=== PATIENT | female | born 1975 | race Caucasian/White ===

== ENCOUNTER → 2017-12-26 16:30 | Outpatient (CLI) | payer OTHER, SELFPAY ==
[2017-12-26 17:15] LABS: Add Manual Diff / Slide Review NO; Basophils Percent Auto 0.9 % (0-2); Eosinophils Percent Auto 2.6 % (2-4); Hematocrit 38.2 % (36-46); Lymphocytes Percent Auto 37.2 % (25-40); Mean Corpuscular Hemoglobin 30.9 PG (26-34); Monocytes Percent Auto 7.1 % (3-14); Neutrophils Absolute Auto 3500 /uL (3000-5900); Neutrophils Percent Auto 52.2 % (50-75); Platelet Count 325 X10^3/uL (150-400); Red Cell Distribution Width 13.2 % (11.6-14.8); White Blood Cell Count 6.6 X10^3/uL (4.5-11.0)
== END ==
PROVIDERS: PCP Family Medicine; Visit Provider Specialist
DX: Z01.818 Encounter for other preprocedural examination (principal)
CPT/HCPCS: 36415; 85025

== ENCOUNTER 2017-12-31 06:25 | Day surgery (SDC) | payer OTHER, SELFPAY ==
[2017-12-17 08:28] VITALS: BMI 28.5
[2017-12-31] VITALS (15 sets, daily range): BP systolic 97–144; BP diastolic 64–86; PULSE 77–100; RESP 12–22; TEMP 36–36.9; O2SAT 94–99; BMI 28.5
--- NOTE | 2017-12-31 | PATH_ITS ---
[facility] Accession Number: [id number] . 01 Material submitted: . UTERUS AND RIGHT FALLOPIAN TUBE . 02 Diagnosis: Uterus, Right Fallopian Tube, Hysterectomy and Salpingectomy: Right fallopian tube with endometriosis. Endometrium, cervix and fallopian tube with no evidence of neoplasia or hyperplasia. [facility]/01/02/2018 . 02 Electronically signed: . Magdalena Hu MD, Pathologist NPI- [id number] . 01 Gross description: . Received in formalin, labeled uterus + right fallopian tube, is a uterus (115 grams, 4.2 cm AP, 9.8 cm SI, 5.3 cm ML) and a detached fimbriated fallopian tube (length-2.7 cm, diameter-0.4 cm). The ovaries and second fallopian tube are absent. The cervix, (1.5 cm AP, 3.4 cm ML) has a vaginal cuff, up to 1.5 cm in depth), transverse os, and patent endocervical canal. The endometrium (average thickness-0.2 cm) is pale ngo, smooth and flat. The myometrium (thickness-2.4 cm) is ngo-white and contains multiple solid firm whorled well-circumscribed homogeneous nodules (0.2 x 0.2 x 0.2 cm-1.5 x 0.8 x 0.5 cm). The serosa is pale ngo smooth and dull. The fallopian tube has mathews-ngo smooth shiny serosa and a ngo unremarkable lumen. Section code: (A1) anterior cervix; (A2) posterior cervix; (A3, A4) anterior endomyometrium; (A5, A6) posterior endomyometrium; (A7) fallopian tube, office machines sales representative serial sections; (A8) fimbria, bivalved, entirely submitted. ([id number]) /MRV . 02 Pathologist provided ICD-10: N80.9 . 02 CPT . 141440 Performed at: 01 [facility] [address] [address], [place], [place] [id number] MD Gregory Barriga MD Phone: [phone] Performed at: 02 [facility] [address] [place], [place] [id number] MD Logan Fontenot MD Phone: [phone]
--- NOTE | 2017-12-31 07:28 | PM.PREOP ---
Pre-operative Note Interval Note Pre-op Check: Yes History & Physical Reviewed by Physician and Yes Exam Performed Changes: No H&P completed within 30 days and has changed as indicated here:: see 12/26/17 note
[2017-12-31] MEDS: LACTATED RINGERS 1,000 ML 42 ML IV ×2 (07:35→10:56)
[2017-12-31] MEDS: CEFAZOLIN 2 GM/100 ML FROZ.PIGGY IV (08:12)
--- NOTE | 2017-12-31 08:40 | SUR.OPER ---
Lithotomy on padded OR bed, head on pillow, arms secured on padded arm boards at <90 degrees abduction. Legs secured in padded yellow fins stirrups.
[2017-12-31] MEDS: BUPIVACAINE 0.5% W/ EPI (PF) VIAL 30 ML INJ (08:48)
[2017-12-31] MEDS: ONDANSETRON 4 MG/2 ML INJ IV ×2 (10:34→17:44)
[2017-12-31] MEDS: fentaNYL 100 MCG/2 ML INJ IV ×2 (10:45→10:52)
--- NOTE | 2017-12-31 10:54 | P.OP_ITS ---
Operative Date/Time/Diagnoses Date of procedure: 12/31/17 Time of procedure: 10:45 Pre-op diagnosis: Symptomatic uterovaginal prolapse Post-op diagnosis: same Procedure & Clinicians Procedure: Total vaginal hysterectomy, right salpingectomy, anterior and posterior repair, sacrospinous ligament fixation Same procedure as scheduled: Yes Indications: Symptomatic uterovaginal prolapse Surgeon: Stefany Burton Lead Python Developer: Андрей Cheng Anesthesia Type: General Operative Notes Findings: Cystocele, rectocele, mild uterine prolapse, normal appearing uterus, possible endometriosis on the right fallopian tube, normal ovaries bilaterally Closure Type: primary Specimen(s): other (Uterus and right fallopian tube) Applied: catheter (Dubois and vaginal packing) Estimated Blood Loss (mL): 200 Blood products transfused: none Procedure in detail: Patient was brought to the operating room where she was placed in yellowfin stirrups and prepped and draped in the usual sterile fashion. A 20 point check system was reviewed prior to the beginning of the case. Pulsatile stockings were in place and functional throughout the case. Warming was in place. 2 g of Ancef were in prior to beginning of the case. A Dubois catheter was placed. A single-tooth tenaculum was placed on the posterior lip of the cervix and a colpotomy incision was made. The peritoneum was sutured to the posterior vaginal wall. The uterosacral ligaments were clamped cut and ligated with 0 Vicryl suture which was used throughout the rest the case unless otherwise indicated. Bites were taken of the cardinal ligament and cut and ligated. A scalpel was used to circumscribe the cervix and the bladder pushed superiorly. The bladder pillars were clamped, cut, and ligated. Keeping the bladder pushed superiorly sequential bites were taken of the cardinal and broad ligaments. Anterior colpotomy incision was made and the bladder held away from the uterus. The rest of the attachments of the uterus including the broad ligament and the utero-ovarian ligaments were clamped and ligated. The uterus was removed intact. Both ovaries were seen to be normal. There was what appeared to be endometriosis on the remainder of the right fallopian tube so that section of the tube was removed by clamping across the mesosalpinx. Adequate hemostasis was noted. The vaginal cuff was closed from anterior to posterior with figure-of -eight suture. A dilute solution of 1% lidocaine with epinephrine was injected over this cystocele. An incision was made over the cystocele and the incision dissected laterally. A pursestring suture was used to decrease the caliber of the cystocele with 2-0 Vicryl suture. Plicating sutures 0 Vicryl were made over the cystocele. A small amount of the vaginal excessive tissue was removed with scissors. The incision was closed with 2-0 Vicryl suture. The area over the rectocele was injected with a dilute solution of 1% lidocaine with epinephrine. An incision was made over the rectocele with the scalpel. The dissection was undertaken laterally. Prolene suture with the Capio passer was placed through the uterosacral ligament on the right and sutured to the underside of the vaginal cuff. 0 Vicryl suture was used to plicate over the rectocele. A finger was placed in the rectum to be sure there were no sutures placed through the rectal mucosa. The uterosacral sutures were tightened down and the vaginal incision was closed with 2-0 Vicryl suture. Vaginal packing was placed in the vagina and the Dubois left in place. Counts of instruments and sponges were correct. The patient went to recovery room in good condition. Complications: none Condition: stable Disposition: Acute Care Plan for aftercare: Patient will have vaginal packing and Dubois removed tomorrow morning and home after postvoid residual check and patient stable
[2017-12-31] MEDS: HYDROMORPHONE 2 MG INJ 0.5 MG IV ×3 (11:00→11:23)
--- NOTE | 2017-12-31 11:04 | SUR.PHASEI ---
Dr. Burton in to see patient.
[2017-12-31] MEDS: OXYCODONE/ACETAMINOPHEN 5/325 TABLET 2 TAB PO ×4 (11:45→23:29)
[2017-12-31] MEDS: LACTATED RINGERS 1,000 ML 100 ML IV (11:46)
[2017-12-31] MEDS: KETOROLAC 30 MG/ML VIAL IV ×2 (12:51→19:11)
--- NOTE | 2017-12-31 15:49 | PC.NURSE ---
Addendum entered by Yumi Mccoy R.N. 12/31/17 22:13: I notified Dr Dunne earlier in shift r/t pain not managed by percocet & toradol alone, pt rating pain 8 or 9 and causing her to be nauseated. Face flushed, gripping side rails tightly. Dr Dunne ordered to give patient prn IV Dilaudid for breakthrough pain. Assisted to reposition. Tonight able to sit up at side of bed with assist, to dangle legs. Then asked to stand, assisted her to stand. Denied any dizziness or lightheadedness, linens refreshed. No bleeding, gaye-pad removed per pt request. Back into bed. About an hour later she called me saying not able to get comfortable and can't wait for next dose of Percocet. Dilaudid 0.5 mg given. Instructed to call nurse if needs assistance. IVF bag complete, IV to R hand now saline locked. Denies nausea & tolerating PO's. Original Note: Post-op note: Kinjal resting in bed, reports unable to get into comfortable position. Assisted to reposition from right to left side. Althought reported pain relief after receiving Toradol, currently rates lower abd/groin/pelvic pain 7 or 8, medicated with 2 tabs Percocet, snack given with med to help prevent nausea. VS are stable. Abd soft. Gaye-pad dry, packing in place. Dubois patent with clear yellow output. IVF infusing at 100 ml/hour, IV patent with clean dressing. Kinjal instructed to call nursing if pain not relieved 45 min post-med, she agrees with this plan. Warm blanket placed against her lower back for comfort.
[2017-12-31] MEDS: HYDROMORPHONE 0.5 MG INJ IV ×2 (18:05→21:57)
[2017-12-31] MEDS: DOCUSATE 250 MG CAPSULE PO (19:11)
[2018-01-01] MEDS: HYDROMORPHONE 0.5 MG INJ IV (02:37)
[2018-01-01 02:57] VITALS: BP 126/71; PULSE 74; RESP 20; TEMP 36.7; O2SAT 98
[2018-01-01] MEDS: OXYCODONE/ACETAMINOPHEN 5/325 TABLET 2 TAB PO ×2 (03:34→07:27)
[2018-01-01] MEDS: KETOROLAC 30 MG/ML VIAL IV ×2 (05:30→11:14)
[2018-01-01 05:55] LABS: Add Manual Diff / Slide Review NO; Eosinophils Percent Auto 0.7 % (2-4); Hematocrit 30.6 % (36-46); Hemoglobin 10.7 g/dL (12.0-16.0); Lymphocytes Percent Auto 33.9 % (25-40); Mean Corpuscular HGB Conc 35.1 % (30-36); Mean Corpuscular Hemoglobin 31.6 PG (26-34); Mean Corpuscular Volume 90.1 fL (80-100); Monocytes Percent Auto 9.3 % (3-14); Neutrophils Absolute Auto 4000 /uL (3000-5900); Neutrophils Percent Auto 55.1 % (50-75); Platelet Count 270 X10^3/uL (150-400); White Blood Cell Count 7.3 X10^3/uL (4.5-11.0)
--- NOTE | 2018-01-01 06:55 | PC.NURSE ---
shift note met with pt at start of shift. pt complained of pain 6/10 throughout shift. provided prn pain meds- percocet, tordal and dilaudid. DC smith at 0615. Tolerated well. Had unmeasured void in BR, with 11mL post residual void with bladder scanner. Call light in reach.
[2018-01-01] MEDS: DOCUSATE 250 MG CAPSULE PO (07:27)
[2018-01-01] MEDS: SODIUM CHLORIDE 0.9% FLUSH 10 ML IV (07:28)
[2018-01-01 08:17] VITALS: BP 130/76; PULSE 79; RESP 18; TEMP 36.5; O2SAT 99
--- NOTE | 2018-01-01 10:44 | PM.DS.1 ---
History of Present Illness Date Patient Seen: 01/01/18 Time Patient Seen: 10:44 Chief complaint: *OPB*[id number] Narrative: Patient with symptomatic uterovaginal prolapse who underwent a total vaginal hysterectomy anterior posterior repair with sacrospinous ligament on 12/31/2017. Discharge Providers Primary care physician: Rick Álvarez MD Discharge provider: Stefany Burton MD Summary Discharge Diagnosis: Partial uterovaginal prolapse status post total vaginal hysterectomy, anterior and posterior repair with sacrospinous ligament fixation. Patient initially had trouble with pain control but her pain is controlled, she passed her bladder trial, she was ambulatory, tolerating a regular diet and her pain was under control. Exam Vital Signs (past 8 hours): - 01/01/18 02:57 01/01/18 08:17 Temperature 98.0 F 97.7 F Pulse Rate 74 79 Respiratory Rate 20 18 Blood Pressure 126/71 130/76 Pulse Oximetry 98 99 Oxygen Delivery Method Room Air Oxygen Flow Rate 0 Narrative Exam Narrative: Abdomen is soft, with minimal lower abdominal tenderness. She has mild vaginal bleeding. Extremities without edema and nontender. Objective Labs Result Diagrams: 01/01/18 05:38 Labs: Laboratory Results - last 24 hr 01/01/18 05:38 WBC 7.3 RBC 3.40 L Hgb 10.7 L Hct 30.6 L MCV 90.1 MCH 31.6 MCHC 35.1 RDW 13.0 Plt Count 270 Neut % (Auto) 55.1 Lymph % (Auto) 33.9 Russell % (Auto) 9.3 Eos % (Auto) 0.7 L Baso % (Auto) 1.0 Neut # (Auto) 4000 Discharge Plan Discharge Plan Patient Disposition: Home Discharge Med Rec/Prescriptions Prescriptions: New oxycodone-acetaminophen 5-325 mg Tablet 2 tab PO Q4HR PRN (Reason: Pain, Severe (7-10)) Qty: 40 RF: 0 docusate sodium 250 mg Capsule 250 mg PO BID Qty: 30 RF: 0 Continue methocarbamol 500 mg tablet 500 mg PO QID RF: 0 meloxicam 15 mg Tablet 15 mg PO DAILY RF: 0 Discontinued norethindrone-ethin estradiol [Dasetta ()] 1-35 mg-mcg tablet 1 tab PO DAILY RF: 0 hydrocodone-acetaminophen 5 MG/325 MG tablet 1 dose PO PRN PRN (Reason: Pain, Moderate) RF: 0 Follow up/Referrals: Stefany Burton MD [Physician] - 01/16/18 4:15 pm Discharge Orders: Discharge (Order); Ordered 01/01/18 Ordered By: Stefany Burton Provider Discharge Instructions Diet: Regular Activity: No lifting over 20 lb, nothing in vagina for 4 weeks Skin/Wound/Dressing Care Report to your healthcare provider any signs of infection, such as:: chills, fever and increased pain Visit Report/Discharge Packet Stand Alone Forms: Surgery Discharge Discharge Data Primary Care Provider: Rick Álvarez Attending Provider: Stefany Burton
--- NOTE | 2018-01-01 10:48 | P.DS_ITS ---
History of Present Illness Date Patient Seen: 01/01/18 Time Patient Seen: 10:44 Chief complaint: *OPB*[id number] Narrative: Patient with symptomatic uterovaginal prolapse who underwent a total vaginal hysterectomy anterior posterior repair with sacrospinous ligament on 01/2018. Discharge Providers Primary care physician: Rick Álvarez MD Discharge provider: Stefany Burton MD Summary Discharge Diagnosis: Partial uterovaginal prolapse status post total vaginal hysterectomy, anterior and posterior repair with sacrospinous ligament fixation. Patient initially had trouble with pain control but her pain is controlled, she passed her bladder trial, she was ambulatory, tolerating a regular diet and her pain was under control. Exam Vital Signs (past 8 hours): - 01/01/18 02:57 01/01/18 08:17 Temperature 98.0 F 97.7 F Pulse Rate 74 79 Respiratory Rate 20 18 Blood Pressure 126/71 130/76 Pulse Oximetry 98 99 Oxygen Delivery Method Room Air Oxygen Flow Rate 0 Narrative Exam Narrative: Abdomen is soft, with minimal lower abdominal tenderness. She has mild vaginal bleeding. Extremities without edema and nontender. Objective Labs Result Diagrams: 01/01/18 05:38 Labs: Laboratory Results - last 24 hr 01/01/18 05:38 WBC 7.3 RBC 3.40 L Hgb 10.7 L Hct 30.6 L MCV 90.1 MCH 31.6 MCHC 35.1 RDW 13.0 Plt Count 270 Neut % (Auto) 55.1 Lymph % (Auto) 33.9 Carroll % (Auto) 9.3 Eos % (Auto) 0.7 L Baso % (Auto) 1.0 Neut # (Auto) 4000 Discharge Plan Discharge Plan Patient Disposition: Home Discharge Med Rec/Prescriptions Prescriptions: New oxycodone-acetaminophen 5-325 mg Tablet 2 tab PO Q4HR PRN (Reason: Pain, Severe (7-10)) Qty: 40 RF: 0 docusate sodium 250 mg Capsule 250 mg PO BID Qty: 30 RF: 0 Continue methocarbamol 500 mg tablet 500 mg PO QID RF: 0 meloxicam 15 mg Tablet 15 mg PO DAILY RF: 0 Discontinued norethindrone-ethin estradiol [Dasetta ()] 1-35 mg-mcg tablet 1 tab PO DAILY RF: 0 hydrocodone-acetaminophen 5 MG/325 MG tablet 1 dose PO PRN PRN (Reason: Pain, Moderate) RF: 0 Follow up/Referrals: Stefany Burton MD [Physician] - 01/16/18 4:15 pm Discharge Orders: Discharge (Order); Ordered 01/01/18 Ordered By: Stefany Burton Provider Discharge Instructions Diet: Regular Activity: No lifting over 20 lb, nothing in vagina for 4 weeks Skin/Wound/Dressing Care Report to your healthcare provider any signs of infection, such as:: chills, fever and increased pain Visit Report/Discharge Packet Stand Alone Forms: Surgery Discharge Discharge Data Primary Care Provider: Rick Álvarez Attending Provider: Stefany Burton
--- NOTE | 2018-01-01 11:22 | PC.NURSE ---
patient tolerating pain, minimal vaginal drainage. voiding fine with pvr zero after each void. dc'd home w/ scripts and paperwork reviewed w/ patient and daughter. daughter to drive patient hm. escorted by herson w/ deployment technician escort.
== END 2018-01-01 11:25 | disposition home or self-care (01) ==
LOC: OR 06:26 → AC 08:07
PROVIDERS: Family Provider Family Medicine; PCP Family Medicine; Visit Provider Specialist
PROC: (CPT 58260; principal; 2017-12-31 07:45)
PROC: (CPT 58262; 2017-12-31 07:45)
DX: N81.4 Uterovaginal prolapse, unspecified (principal); N81.6 Rectocele; F17.210 Nicotine dependence, cigarettes, uncomplicated; N80.2 Endometriosis of fallopian tube
CPT/HCPCS: 58262; 57267; 57260; 36415; 85025; J0131; J0690; J1100; J1170; J1885; J2250; J2405; J2704; J3010

== ENCOUNTER → 2018-01-30 11:46 | Outpatient (CLI) | payer OTHER, SELFPAY ==
[2017-12-31 12:39] VITALS: BMI 28.5
[2018-01-30 13:12] LABS: Bacteria Urine None Seen; WBC Urine None Seen (0-5/HPF)
[2018-01-30 13:57] LABS: Appearance Urine UA CLEAR; Bilirubin Urine UA NEGATIVE (NEGATIVE); Color Urine UA YELLOW; Glucose Urine UA NEGATIVE (Normal); Ketones Urine UA NEGATIVE (NEGATIVE); Leukocyte Esterase Urine UA NEGATIVE (NEGATIVE); Nitrite Urine UA Negative (Negative); Occult Blood Urine UA 3+ (Negative); Protein Urine UA NEGATIVE (Negative); Specific Gravity Urine UA 1.025 (1.000-1.035); Urobilinogen Urine UA 0.2 E.U./dL (0.2)
[2018-01-30 14:04] LABS: RBC Urine 5-10/HPF (0-5/HPF); Squamous Epithelial Cell Urine 5-10 /HPF
[2018-01-30 14:05] LABS: Amorphous Sediment Urine 1+; Culture Indicated Urine Cult Not Indicated; Mucus Urine 3+ (Negative)
== END ==
PROVIDERS: Family Provider Family Medicine; PCP Family Medicine; Visit Provider Specialist
DX: N20.0 Calculus of kidney (principal)
CPT/HCPCS: 81001

== ENCOUNTER 2018-06-28 09:12 | Emergency (ER) | payer OTHER, SELFPAY ==
[2017-12-31 12:39] VITALS: BMI 28.5
[2018-06-28 09:26] VITALS: BP 149/89; PULSE 81; RESP 16; TEMP 36.3; O2SAT 100; BMI 28.3
[2018-06-28] MEDS: ONDANSETRON 4 MG/2 ML INJ IV (09:43)
[2018-06-28 09:54] LABS: Appearance Urine UA SL CLOUDY; Bilirubin Urine UA NEGATIVE (NEGATIVE); Color Urine UA YELLOW; Glucose Urine UA NEGATIVE (Negative); Ketones Urine UA NEGATIVE (NEGATIVE); Leukocyte Esterase Urine UA NEGATIVE (NEGATIVE); Nitrite Urine UA NEGATIVE (Negative); Occult Blood Urine UA 3+ (Negative); Protein Urine UA NEGATIVE (Negative); Urobilinogen Urine UA 0.2 E.U./dL (0.2)
[2018-06-28 10:00] LABS: Bacteria Urine Many (>30); Culture Indicated Urine Cult Not Indicated; RBC Urine 5-10/HPF (0-5/HPF); Squamous Epithelial Cell Urine >30 /HPF; WBC Urine 1-5/HPF (0-5/HPF)
--- NOTE | 2018-06-28 10:03 | ED_ITS ---
HPI - Female Genitourinary General Chief complaint: Urogenital-Female Stated complaint: PAIN IN KIDNEY/BLADDER AREA Time Seen by Provider: 06/28/18 09:51 Source: patient and family () Mode of arrival: ambulatory Limitations: no limitations History of Present Illness HPI Narrative: This is a 43-year-old female who comes to the emergency department with complaint of right flank pain as well as dysuria, urgency and frequency. Patient states last night started with dysuria, urgency and frequency and feels almost like there is a toothpick in her Dev[place] throat. Patient states that she has felt warm, with subjective fevers. She has been nauseated but no vomiting. No diarrhea or constipation. Patient states she is having some right flank pain. That radiates from the back towards the front. She states that the initial symptoms with dysuria, urgency and frequency with the flank pain starting today. She tried 2 tablets of Tylenol at home without success. Patient does have a history of kidney stone and has required what sounds like lithotripsy in the past. She had a hysterectomy and has had both ovaries removed in December. She denies any other surgeries currently. She denies any tobacco, alcohol or illicit. She is allergic to levofloxacin. Related Data Home Medications Medication Instructions Recorded Confirmed acetaminophen [Tylenol] 1 dose PO PRN PRN 06/28/18 06/28/18 Previous Rx's Medication Instructions Recorded oxycodone-acetaminophen [Percocet] 1 tab PO Q4-6H PRN #14 tab 06/28/18 tamsulosin [Flomax] 0.4 mg PO DAILY #7 cap 06/28/18 Allergies Allergy/AdvReac Type Severity Reaction Status Date / Time levofloxacin [LEVOFLOXACIN] Allergy Intermediate numbness Verified 06/28/18 09:25 gabapentin [GABAPENTIN] Allergy Unknown NAUSEA, Verified 06/28/18 09:25 SWEATS, WEAKNESS Review of Systems Review of Systems ROS Unobtainable: All systems reviewed & are unremarkable except as noted in HPI and below Constitutional Denies chills, Reports fever(s) ( Subjective), Denies lethargy and Denies weakness Gastrointestinal Gastrointestinal: Denies abdominal pain, Denies change in bowel habits, Denies d iarrhea, Reports nausea and Denies vomiting Genitourinary Reports as per HPI, Denies hematuria, Reports urinary frequency, Reports dysuria, Reports flank pain, Denies urinary incontinence and Reports urinary urgency Neurologic Denies weakness [facility] Medical History Rectocele (Acute) Recurrent and persistent hematuria (Acute) Surgical History History of arthroscopic knee surgery (Acute) History of bilateral tubal ligation (Acute) History of cystoscopy (Acute) History of ear surgery (Acute) History of microdiscectomy (Acute) History of placement of ear tubes (Acute) S/P epidural steroid injection (Acute) Social History household members: spouse Smoking Status: Former smoker alcohol intake: current Social History household members: spouse Smoking Status: Former smoker alcohol intake: current Exam Narrative Exam Narrative: GENERAL: Alert and oriented x three, well-nourished, well- appearing female in moderate distress. HEENT: Head normocephalic, atraumatic, EOMI, pupils reactive, face symmetric, moist mucous membranes NECK: Supple, full range of motion CARDIOVASCULAR: Regular rate and rhythm without murmurs, rubs or gallops. RESPIRATORY: Breath sounds equal bilaterally, no wheezes rales or rhonchi. ABDOMEN: Soft, nontender. Normoactive bowel sounds all 4 quadrants. No g uarding or rebound, rigidity, no mass : No CVA tenderness EXTREMITIES: Normal range of motion, no clubbing or edema. Neurovascularly intact NEUROLOGICAL: Cranial nerves II through XII grossly intact. Moving all extremities SKIN: Warm, dry, no petechiae, no rashes or lesions. Initial Vital Signs Initial Vital Signs: Vital Signs Temperature 97.3 F L 06/28/18 09:26 Pulse Rate 81 06/28/18 09:26 Respiratory Rate 16 06/28/18 09:26 Blood Pressure 149/89 H 06/28/18 09:26 Pulse Oximetry 100 06/28/18 09:26 Course Orders Ordered: Discontinued Medications Hydromorphone HCl (Dilaudid) 1 mg IV NOW ONE Stop: 06/28/18 11:25 Last Admin: 06/28/18 11:31 Dose: 1 mg Sodium Chloride (Normal Saline 0.9%) 1,000 mls @ 1,000 mls/hr IV BOLUS ONE Stop: 06/28/18 11:00 Last Infusion: 06/28/18 11:43 Dose: 0 mls/hr Admin: 06/28/18 10:08 Dose: 1,000 mls/hr Ketorolac Tromethamine (Toradol) 30 mg IV NOW ONE Stop: 06/28/18 10:02 Last Admin: 06/28/18 10:08 Dose: 30 mg Morphine Sulfate (Morphine) 4 mg IV NOW ONE Stop: 06/28/18 10:34 Last Admin: 06/28/18 10:34 Dose: 4 mg Morphine Sulfate (Morphine) 4 mg IV NOW ONE Stop: 06/28/18 11:03 Last Admin: 06/28/18 11:04 Dose: 4 mg Ondansetron HCl (Zofran) 4 mg IV NOW ONE Stop: 06/28/18 09:41 Last Admin: 06/28/18 09:43 Dose: 4 mg Oxycodone/Acetaminophen (Percocet 5/325) 2 tab PO NOW ONE Stop: 06/28/18 11:49 Last Admin: 06/28/18 11:59 Dose: 2 tab Phenazopyridine HCl (Pyridium) 200 mg PO NOW ONE Stop: 06/28/18 11:30 Last Admin: 06/28/18 11:30 Dose: 200 mg Vital Signs - 8 hr 06/28/18 11:54 06/28/18 12:10 Temperature 97.5 F L Pulse Rate 71 Respiratory Rate 18 Blood Pressure [Right Arm] 117/81 Pulse Oximetry 97 MDM - Female Genitourinary Lab Data Attestation: I reviewed the patient's lab results. Result diagrams: 06/28/18 09:35 06/28/18 09:35 Lab Results 06/28/18 06/28/18 06/28/18 Range/Units 09:20 09:35 09:35 WBC 5.8 (4.5-11.0) X10^3/uL RBC 4.32 (4.0-5.2) X10^6/uL Hgb 13.1 (12.0-16.0) g/dL Hct 38.8 (36-46) % MCV 89.9 (80-100) fL MCH 30.4 (26-34) PG MCHC 33.8 (30-36) % RDW 12.9 (11.6-14.8) % Plt Count 261 (150-400) X10^3/uL Neut % (Auto) 57.2 (50-75) % Lymph % (Auto) 32.1 (25-40) % Piute % (Auto) 7.6 (3-14) % Eos % (Auto) 2.5 (2-4) % Baso % (Auto) 0.6 (0-2) % Neut # (Auto) 3300 (3738-2618) /uL Lymph # (Auto) 1900 (6999-0259) /uL Piute # (Auto) 400 (0-900) /uL Eos # (Auto) 100 (0-450) /uL Baso # (Auto) 0 (0-100) /uL Sodium 139 (137-145) mmol/L Potassium 3.8 (3.4-5.1) mmol/L Chloride 106 (98-107) mmol/L Carbon Dioxide 23 (22-32) mmol/L BUN 15 (7-17) mg/dL Creatinine 0.70 (0.52-1.04) mg/dL Estimated GFR > 60.0 (>60) mL/min BUN/Creatinine Ratio 21.4 (6-22) Glucose 93 (70-100) mg/dL Calcium 9.1 (8.4-10.2) mg/dL Total Bilirubin 0.7 (0.2-1.3) mg/dL AST 21 (14-36) IU/L ALT 25 (9-52) IU/L Alkaline Phosphatase 56 (38-126) U/L Total Protein 7.0 (6.3-8.2) g/dL Albumin 4.3 (3.5-5.0) g/dL Globulin 2.7 (1.7-4.1) g/dL Albumin/Globulin Ratio 1.6 (1.0-2.8) Urine Color Yellow Urine Appearance Sl cloudy Urine pH 5.0 (4.5-8.0) Ur Specific Hurricane 1.020 (1.000-1.035) Urine Protein Negative (Negative) Urine Glucose (UA) Negative (Negative) g/dL Urine Ketones Negative (NEGATIVE) Urine Occult Blood 3+ H (Negative) Urine Nitrate Negative (Negative) Urine Bilirubin Negative (NEGATIVE) Urine Urobilinogen 0.2 (0.2) E.U./dL Ur Leukocyte Esterase Negative (NEGATIVE) Urine RBC 5-10/hpf H (0-5/HPF) Urine WBC 1-5/hpf (0-5/HPF) Ur Squamous Epith Cells >30 /hpf H Urine Bacteria Many (>30) H (None) Ur Culture Indicated? Cult not indicated Urine Test (Negative) 06/28/18 Range/Units 10:13 WBC (4.5-11.0) X10^3/uL RBC (4.0-5.2) X10^6/uL Hgb (12.0-16.0) g/dL Hct (36-46) % MCV (80-100) fL MCH (26-34) PG MCHC (30-36) % RDW (11.6-14.8) % Plt Count (150-400) X10^3/uL Neut % (Auto) (50-75) % Lymph % (Auto) (25-40) % Piute % (Auto) (3-14) % Eos % (Auto) (2-4) % Baso % (Auto) (0-2) % Neut # (Auto) (4104-2786) /uL Lymph # (Auto) (5409-5609) /uL Piute # (Auto) (0-900) /uL Eos # (Auto) (0-450) /uL Baso # (Auto) (0-100) /uL Sodium (137-145) mmol/L Potassium (3.4-5.1) mmol/L Chloride (98-107) mmol/L Carbon Dioxide (22-32) mmol/L BUN (7-17) mg/dL Creatinine (0.52-1.04) mg/dL Estimated GFR (>60) mL/min BUN/Creatinine Ratio (6-22) Glucose (70-100) mg/dL Calcium (8.4-10.2) mg/dL Total Bilirubin (0.2-1.3) mg/dL AST (14-36) IU/L ALT (9-52) IU/L Alkaline Phosphatase (38-126) U/L Total Protein (6.3-8.2) g/dL Albumin (3.5-5.0) g/dL Globulin (1.7-4.1) g/dL Albumin/Globulin Ratio (1.0-2.8) Urine Color Urine Appearance Urine pH (4.5-8.0) Ur Specific Hurricane (1.000-1.035) Urine Protein (Negative) Urine Glucose (UA) (Negative) g/dL Urine Ketones (NEGATIVE) Urine Occult Blood (Negative) Urine Nitrate (Negative) Urine Bilirubin (NEGATIVE) Urine Urobilinogen (0.2) E.U./dL Ur Leukocyte Esterase (NEGATIVE) Urine RBC (0-5/HPF) Urine WBC (0-5/HPF) Ur Squamous Epith Cells Urine Bacteria (None) Ur Culture Indicated? Urine Test Negative (Negative) Imaging Data CT KUB: Radiologist's impression: [address] [address] [address] Scan Report Signed Patient: Kinjal Slater [facility]#: [id number] : 1975Acct:[id number] Age/Sex: 43 / FDate of Service: 06/28/18 Loc: ED Accession Number: [id number] Procedure: CT kidney ureter bladder (KUB) Ordering Provider: Zunilda Serrano D.O. PROCEDURE: CT KIDNEY URETER BLADDER (KUB) INDICATIONS: right flank pain, dysuria, hx of stone., urine carlos only TECHNIQUE: Noncontrast 5 mm thick sections acquired from the diaphragms to the symphysis. 5 mm thick coronal and sagittal reformats were then performed. For radiation dose reduction, the following was used: automated exposure control, adjustment of mA and/or kV according to patient size. COMPARISON: [facility], CT, CT IVP, 01/29/2017, 15:41. [facility], CT, KIDNEY/ URETER/BLADDER, 06/28/2015, 14:30. [facility], CT, KIDNEY/ URETER/BLADDER, 06/11/2015, 19:04. FINDINGS: Image quality: Excellent. Lung bases: Lung bases are clear. Heart size is normal. Urinary system: Both kidneys are normal in size. No kidney stones. No left- sided hydronephrosis or perinephric fat stranding. There is moderate hydronephrosis on the right, not present 01/29/17. The left ureter appears non-dilated throughout its expected course. The right ureter is slightly dilated when compared to the prior study along the right retroperitoneum, to the level of a 1 mm calculus at the far distal right ureter virtually at the bladder wall. This can be seen on series 2 image 74 and to adjacent pelvic phleboliths serve as a reference point for reference to the prior studies showing no calcification at that site of the distal ureter. Bladder wall thickness is normal; no calcified bladder stones. Other solid organs: Liver is normal in size. Gallbladder appears normal. Pancreas is normal in contours. Spleen is normal in size. No adrenal nodules. Peritoneum and bowel: Unenhanced bowel loops demonstrate normal wall thickness and caliber. No free fluid or air. Nodes and vessels: No retroperitoneal or mesenteric adenopathy by size criteria. Aorta and inferior vena cava are normal in caliber. Abdominal wall: No ventral hernias. Pelvis: No free pelvic fluid. No inguinal hernias or adenopathy. Bones: No suspicious bony lesions. No vertebral body compression fractures. IMPRESSION: Right-sided hydronephrosis is present secondary to a 1 mm calculus at the far distal margin of the right ureter, in this patient with prior episodes of small urinary tract stones. Currently within the collecting system of each kidney no calculus is found. There are scattered multiple pelvic phleboliths more inferiorly along the retroperitoneum and peritoneal margins, but these do not represent distal ureteral stones bilaterally. Dictated by: Ho Lezama M.D. on 06/28/2018 at 10:59 Approved by: Ho Lezama M.D. on 06/28/2018 at 11:06 [facility] Narrative Medical decision making narrative: patient's urine shows bacteria but no nitrates or leukocyte esterase. Her symptoms with dysuria urgency and frequency do fit with UTI so urine culture was ordered but patient sent for CT KUB for possible kidney stone as well. Patient's BMP shows normal electrolytes with no elevation in creatinine a urine culture was sent. Patient's CT shows a 1 mm stone at the UVJ. Patient's pain was controlled after several doses of pain medication. Discussed with patient she states her last stone was also mm and ultimately had lithotripsy but after about 3 months. Patient had seen Dr. hackett and his coworkers in the past but states she does not wish to follow with them. She was offered Dr. Landis is office on although he is in [place]. Discharge Plan Departure Patient Disposition: Home Clinical Impression: Kidney stone Discharge Date/Time: 06/28/18 12:30 Interventions: ED Discharge Assessment Last Done: 06/28/18 12:30 Instructions: DI for Kidney Stones Activity Restrictions/Additional Instructions: Follow up with primary care or urology in the next 2-3 days. Call for an appointment. Your urine culture is pending if this is positive he will be contacted to start him on oral antibiotics. Continue ibuprofen 600 mg every 6 hr as needed for pain. May also take Percocet 1-2 tablets every 4 hr as needed for breakthrough pain. You may take Tylenol instead of Percocet up to a 1000 mg every 8 hr but do not take this with Percocet as they both have Tylenol and he should not have more than 3000 mg of Tylenol in a 24 hr period. Continue Flomax 1 tablet daily until gone. Return to the emergency department for fevers, persistent vomiting, rapidly worsening pain, inability to urinate or other new or concerning symptoms. Prescriptions: New oxycodone-acetaminophen [Percocet] 5-325 mg tablet 1 tab PO Q4-6H PRN (Reason: pain) Qty: 14 RF: 0 tamsulosin [Flomax] 0.4 mg capsule 0.4 mg PO DAILY Qty: 7 RF: 0 No Action acetaminophen [Tylenol] 325 mg Tablet 1 dose PO PRN PRN (Reason: pain) RF: 0 Referrals: La Landis MD [Physician] - Rick Álvarez MD [Primary Care Provider] -
--- NOTE | 2018-06-28 10:07 | DI.CT.S_ITS ---
PROCEDURE: CT KIDNEY URETER BLADDER (KUB) INDICATIONS: right flank pain, dysuria, hx of stone., urine carlos only TECHNIQUE: Noncontrast 5 mm thick sections acquired from the diaphragms to the symphysis. 5 mm thick coronal and sagittal reformats were then performed. For radiation dose reduction, the following was used: automated exposure control, adjustment of mA and/or kV according to patient size. COMPARISON: [facility], CT, CT IVP, 01/29/2017, 15:41. [facility], CT, KIDNEY/ URETER/BLADDER, 06/28/2015, 14:30. [facility], CT, KIDNEY/ URETER/BLADDER, 06/11/2015, 19:04. FINDINGS: Image quality: Excellent. Lung bases: Lung bases are clear. Heart size is normal. Urinary system: Both kidneys are normal in size. No kidney stones. No left-sided hydronephrosis or perinephric fat stranding. There is moderate hydronephrosis on the right, not present 01/29/17. The left ureter appears non-dilated throughout its expected course. The right ureter is slightly dilated when compared to the prior study along the right retroperitoneum, to the level of a 1 mm calculus at the far distal right ureter virtually at the bladder wall. This can be seen on series 2 image 74 and to adjacent pelvic phleboliths serve as a reference point for reference to the prior studies showing no calcification at that site of the distal ureter. Bladder wall thickness is normal; no calcified bladder stones. Other solid organs: Liver is normal in size. Gallbladder appears normal. Pancreas is normal in contours. Spleen is normal in size. No adrenal nodules. Peritoneum and bowel: Unenhanced bowel loops demonstrate normal wall thickness and caliber. No free fluid or air. Nodes and vessels: No retroperitoneal or mesenteric adenopathy by size criteria. Aorta and inferior vena cava are normal in caliber. Abdominal wall: No ventral hernias. Pelvis: No free pelvic fluid. No inguinal hernias or adenopathy. Bones: No suspicious bony lesions. No vertebral body compression fractures. IMPRESSION: Right-sided hydronephrosis is present secondary to a 1 mm calculus at the far distal margin of the right ureter, in this patient with prior episodes of small urinary tract stones. Currently within the collecting system of each kidney no calculus is found. There are scattered multiple pelvic phleboliths more inferiorly along the retroperitoneum and peritoneal margins, but these do not represent distal ureteral stones bilaterally. Dictated by: Ho Leazma M.D. on 06/28/2018 at 10:59 Approved by: Ho Lezama M.D. on 06/28/2018 at 11:06
[2018-06-28] MEDS: KETOROLAC 30 MG/ML VIAL IV (10:08)
[2018-06-28] MEDS: SODIUM CHLORIDE 0.9% 1,000 ML 1000 ML IV (10:08)
[2018-06-28 10:11] LABS: Add Manual Diff / Slide Review NO; Basophils Absolute Auto 0 /uL (0-100); Basophils Percent Auto 0.6 % (0-2); Eosinophils Absolute Auto 100 /uL (0-450); Eosinophils Percent Auto 2.5 % (2-4); Hematocrit 38.8 % (36-46); Hemoglobin 13.1 g/dL (12.0-16.0); Lymphocytes Absolute Auto 1900 /uL (1100-4500); Lymphocytes Percent Auto 32.1 % (25-40); Mean Corpuscular HGB Conc 33.8 % (30-36); Mean Corpuscular Hemoglobin 30.4 PG (26-34); Mean Corpuscular Volume 89.9 fL (80-100); Monocytes Absolute Auto 400 /uL (0-900); Monocytes Percent Auto 7.6 % (3-14); Neutrophils Absolute Auto 3300 /uL (1500-7000); Neutrophils Percent Auto 57.2 % (50-75); Platelet Count 261 X10^3/uL (150-400); Red Blood Cell Count 4.32 X10^6/uL (4.0-5.2); Red Cell Distribution Width 12.9 % (11.6-14.8); White Blood Cell Count 5.8 X10^3/uL (4.5-11.0)
[2018-06-28 10:16] LABS: Alanine Aminotransferase 25 IU/L (9-52); Albumin 4.3 g/dL (3.5-5.0); Albumin Globulin Ratio 1.6 (1.0-2.8); Alkaline Phosphatase 56 U/L (38-126); Aspartate Aminotransferase 21 IU/L (14-36); BUN Creatinine Ratio 21.4 (6-22); Bilirubin Total 0.7 mg/dL (0.2-1.3); Blood Urea Nitrogen 15 mg/dL (7-17); Calcium 9.1 mg/dL (8.4-10.2); Carbon Dioxide 23 mmol/L (22-32); Chloride 106 mmol/L (98-107); Estimated Glomerular Filt Rate > 60.0 mL/min (>60); Globulin 2.7 g/dL (1.7-4.1); Glucose 93 mg/dL (70-100); HEMOLYSIS < 15 (0-50); Potassium 3.8 mmol/L (3.4-5.1); Sodium 139 mmol/L (137-145)
[2018-06-28 10:21] LABS: Pregnancy Test Urine Negative (Negative)
[2018-06-28] MEDS: MORPHINE 4 MG/ML INJ IV ×2 (10:34→11:04)
[2018-06-28 11:11] VITALS: BP 111/58; PULSE 73; RESP 16; O2SAT 96
[2018-06-28 11:30] VITALS: BP 113/66; PULSE 69; RESP 18; O2SAT 94
[2018-06-28] MEDS: PHENAZOPYRIDINE 100 MG TABLET 200 MG PO (11:30)
[2018-06-28] MEDS: HYDROMORPHONE 1 MG INJ IV (11:31)
[2018-06-28 11:54] VITALS: TEMP 36.4
[2018-06-28] MEDS: OXYCODONE/ACETAMINOPHEN 5/325 TABLET 2 TAB PO (11:59)
[2018-06-28 12:10] VITALS: BP 117/81; PULSE 71; RESP 18; O2SAT 97
== END 2018-06-28 12:30 | disposition home or self-care (01) ==
PROVIDERS: Emergency Provider Emergency Medicine; Family Provider Family Medicine; PCP Family Medicine
DX: N20.0 Calculus of kidney (principal)
CPT/HCPCS: 36591; 74176; 80053; 81001; 81025; 85025; 87086; 96361; 96374; 96375; 99283; 99284; J1170; J1885; J2270; J2405

== ENCOUNTER → 2020-09-16 14:47 | Outpatient (CLI) | payer OTHER, SELFPAY ==
[2017-12-31 12:39] VITALS: BMI 28.5
--- NOTE | 2020-09-16 14:48 | DI.MG.S_ITS ---
BILATERAL DIGITAL SCREENING MAMMOGRAM 3D/2D WITH CAD: 09/16/2020 CLINICAL: Routine screening. Family history of breast cancer. [facility] There are scattered fibroglandular elements in both breasts. Current study was also evaluated with a Computer Aided Detection (CAD) system. There is an irregular equal density asymmetry with an indistinct margin in the right breast anterior depth central to the nipple seen on the mediolateral oblique view only. No other significant masses, calcifications, or other findings are seen in either breast. IMPRESSION: INCOMPLETE: NEEDS ADDITIONAL IMAGING EVALUATION The irregular equal density asymmetry in the right breast is indeterminate. Mediolateral and spot compression views as well as additional views with possible ultrasound are recommended. This exam was interpreted at Station ID: [id number]. NOTE: For mammograms, a report in lay terms will be sent to the patient. Approximately 15% of breast malignancies will not be visualized mammographically. In the management of a palpable breast mass, a negative mammogram must not discourage biopsy of a clinically suspicious lesion. Electronically Signed By: Gregory george/ila:09/16/2020 15:24:24 letter sent: Additional Imaging Needed ACR BI-RADS Category 0: Incomplete [id number]
== END ==
PROVIDERS: Family Provider Family Medicine; PCP Family Medicine; Referring Provider Family Medicine; Visit Provider Family Medicine
DX: Z12.31 Encounter for screening mammogram for malignant neoplasm of breast (principal); Z80.3 Family history of malignant neoplasm of breast
CPT/HCPCS: 77063; 77067

== ENCOUNTER → 2020-10-05 08:40 | Outpatient (CLI) | payer OTHER, SELFPAY ==
[2017-12-31 12:39] VITALS: BMI 28.5
--- NOTE | 2020-10-05 | DI.MG.S_ITS ---
UNILATERAL RIGHT DIGITAL DIAGNOSTIC MAMMOGRAM 3D/2D WITH ADDITIONAL VIEWS: 10/05/2020 CLINICAL: Additional evaluation requested from prior study. Comparison is made to exams dated: 09/16/2020 mammogram and 06/09/2013 mammogram - [facility]. There are scattered fibroglandular elements in right breast. The irregular equal density asymmetry with an indistinct margin in the right breast anterior depth central to the nipple seen on the mediolateral oblique view only is no longer seen and likely represents fibroglandular tissue. This is not seen in additional views. No other significant masses or calcifications are seen in the breast. IMPRESSION: BENIGN There is no mammographic evidence of malignancy. Return to annual mammogram screening schedule is recommended. This exam was interpreted at Station ID: [id number]. NOTE: For mammograms, a report in lay terms will be sent to the patient. Approximately 15% of breast malignancies will not be visualized mammographically. In the management of a palpable breast mass, a negative mammogram must not discourage biopsy of a clinically suspicious lesion. Electronically Signed By: Kb Murphy M.D., jr/ila:10/05/2020 09:35:36 letter sent: Normal Exam ACR BI-RADS Category 2: Benign Finding(s) 3342F
== END ==
PROVIDERS: Family Provider Family Medicine; PCP Family Medicine; Referring Provider Family Medicine; Visit Provider Family Medicine
DX: R92.8 Other abnormal and inconclusive findings on diagnostic imaging of breast (principal)
CPT/HCPCS: 77065; G0279

== ENCOUNTER → 2021-10-24 12:12 | Outpatient (CLI) | payer OTHER, SELFPAY ==
[2017-12-31 12:39] VITALS: BMI 28.5
[2021-10-24 12:56] LABS: COVID19 -Nasal RAPID Negative (Negative)
== END ==
PROVIDERS: Family Provider Family Medicine; PCP Family Medicine; Visit Provider Nurse Practitioner Family
DX: Z20.822 Contact with and (suspected) exposure to COVID-19 (principal)
CPT/HCPCS: 87635

== ENCOUNTER 2022-02-26 10:23 | Emergency (ER) | payer OTHER, SELFPAY ==
[2017-12-31 12:39] VITALS: BMI 28.5
[2022-02-26] VITALS (9 sets, daily range): BP systolic 116–142; BP diastolic 57–80; PULSE 81–99; RESP 19–24; TEMP 36.5; O2SAT 95–100; BMI 27.4
[2022-02-26 11:03] LABS: Add Manual Diff / Slide Review NO; Basophils Absolute Auto 0 /uL (0-100); Basophils Percent Auto 0.3 % (0-2); Eosinophils Absolute Auto 100 /uL (0-450); Eosinophils Percent Auto 0.9 % (2-4); Hematocrit 38.7 % (36-46); Hemoglobin 13.5 g/dL (12.0-16.0); Lymphocytes Absolute Auto 1200 /uL (1100-4500); Lymphocytes Percent Auto 14.8 % (25-40); Mean Corpuscular Hemoglobin 32.1 PG (26-34); Mean Corpuscular Volume 91.7 fL (80-100); Monocytes Absolute Auto 700 /uL (0-900); Monocytes Percent Auto 8.9 % (3-14); Neutrophils Absolute Auto 5900 /uL (1500-7000); Neutrophils Percent Auto 75.1 % (50-75); Platelet Count 236 X10^3/uL (150-400); Red Blood Cell Count 4.22 X10^6/uL (4.0-5.2); Red Cell Distribution Width 14.1 % (11.6-14.8); White Blood Cell Count 7.8 X10^3/uL (4.5-11.0)
[2022-02-26 11:10] LABS: Alanine Aminotransferase 36 IU/L (<35); Albumin 4.5 g/dL (3.5-5.0); Albumin Globulin Ratio 1.4 (1.0-2.8); Alkaline Phosphatase 79 U/L (38-126); Aspartate Aminotransferase 27 IU/L (14-36); BUN Creatinine Ratio 18.8 (6-22); Bilirubin Total 1.2 mg/dL (0.2-1.3); Blood Urea Nitrogen 13 mg/dL (7-17); Calcium 9.3 mg/dL (8.4-10.2); Carbon Dioxide 26 mmol/L (22-32); Chloride 103 mmol/L (98-107); Estimated Glomerular Filt Rate > 60 mL/min (>60); Globulin 3.2 g/dL (1.7-4.1); Glucose 92 mg/dL (70-100); HEMOLYSIS < 15 (0-50); Lipase 75 U/L (23-300); Potassium 3.6 mmol/L (3.4-5.1); Sodium 141 mmol/L (137-145); Total Protein 7.7 g/dL (6.3-8.2)
--- NOTE | 2022-02-26 11:17 | DI.CT.S_ITS ---
PROCEDURE: CT KIDNEY URETER BLADDER (KUB) INDICATIONS: L side flank pain eval for stone TECHNIQUE: Axial sections were acquired from the lung bases to the pubic symphysis. Coronal and sagittal reformats were performed. For radiation dose reduction, the following was used: automated exposure control, adjustment of mA and/or kV according to patient size. COMPARISON: [facility], CT, CT KIDNEY URETER BLADDER (KUB), 06/28/2018, 10:36. FINDINGS: Lower thorax: The lung bases are clear. Heart size normal. No hiatal hernia. Liver: Normal in size and attenuation. No contour deformity present. Biliary system: No calcified cholelithiasis or pericholecystic inflammation. No intra or extrahepatic bile duct dilatation. Pancreas: Unremarkable without mass or inflammation evident. Spleen: Normal in size and density. Adrenals: Normal morphology and density. Reproductive system: Unremarkable as visualized. Urinary system: Normal renal size and attenuation. Incidental extrarenal pelvis noted on the left. There is a 2 mm nonobstructing right renal calculus present. No hydronephrosis bilaterally. No ureteral calculi. Gastrointestinal system: The bowel is unremarkable without evidence of bowel obstruction or inflammation. The stomach appears unremarkable. Appendix: No findings to suggest acute appendicitis. Peritoneal spaces: No mesenteric or retroperitoneal adenopathy. No free air. No free fluid. Vasculature: The IVC, aorta and iliac vasculature are unremarkable. Abdominal wall: Abdominal wall intact without evidence of ventral or inguinal hernias. Musculoskeletal: Normal bone mineralization. No acute fractures. IMPRESSION: 1. Tiny nonobstructing right renal calculus without evidence of hydronephrosis or obstructive uropathy bilaterally. Approved by: Rubén Fan M.D. on 02/26/2022 at 11:54
--- NOTE | 2022-02-26 11:17 | ED.GENADULT ---
HPI - General Adult General Chief complaint: Abdominal Pain Stated complaint: abdominal pain LT, chills,fever Time Seen by Provider: 02/26/22 10:27 Source: patient Mode of arrival: Ambulatory Limitations: no limitations History of Present Illness HPI narrative: 46-year-old female. Has had left-sided kidney stones in the past. She has passed some on her own but has also needed to have surgery with stent placement. Started to have discomfort in the left side last evening. States that it feels somewhat like prior stones but this is different. The pain is higher than what it normally is in his radiating to different places. She denies any urinary symptoms. No change in bowel habits. Took some Tylenol without any improvement. No nausea vomiting. Did have some fevers last evening. She thinks she may have a urinary tract infection as well. Has had a hysterectomy but no other abdominal surgeries. Related Data Home Medications Medication Instructions Recorded Confirmed acetaminophen 325 mg tablet 1 dose PO PRN PRN pain 06/28/18 06/28/18 (Tylenol) Previous Rx's Medication Instructions Recorded oxycodone-acetaminophen 5 mg-325 1 tab PO Q4-6H PRN pain #14 tabs 06/28/18 mg tablet (Percocet) tamsulosin 0.4 mg capsule (Flomax) 0.4 mg PO DAILY #7 caps 06/28/18 fluticasone propionate 50 2 spray intranasal DAILY #16 grams 10/24/21 mcg/actuation nasal spray,suspension (Flonase Allergy Relief) ondansetron 4 mg disintegrating 4 mg PO Q6H PRN nausea and 02/26/22 tablet vomiting #14 tabs sulfamethoxazole 400 1 tab PO BID 14 days #28 tabs 02/26/22 mg-trimethoprim 80 mg tablet (Bactrim) tramadol 50 mg tablet 50 mg PO Q4H PRN pain #7 tabs 02/26/22 Allergies Allergy/AdvReac Type Severity Reaction Status Date / Time levofloxacin [LEVOFLOXACIN] Allergy Intermediate numbness Verified 06/28/18 09:25 gabapentin [GABAPENTIN] Allergy Unknown NAUSEA, Verified 06/28/18 09:25 SWEATS, WEAKNESS Review of Systems Constitutional Constitutional: Reports system reviewed and no additional complaints, except as documented Cardiovascular Cardiovascular: Reports system reviewed and no additional complaints, except as documented Respiratory Respiratory: Reports system reviewed and no additional complaints, except as documented Gastrointestinal Gastrointestinal: Reports system reviewed and no additional complaints, except as documented Genitourinary Genitourinary: Reports system reviewed and no additional complaints, except as documented Musculoskeletal Musculoskeletal: Reports system reviewed and no additional complaints, except as documented Integumentary/Breasts Skin/Breast: Reports system reviewed and no additional complaints, except as documented Hematologic/Lymphatic On Anticoagulants: No Patient History Medical History (Updated 02/26/22 @ 14:33 by Missael Jc DO) Rectocele Recurrent and persistent hematuria Surgical History History of arthroscopic knee surgery History of bilateral tubal ligation History of cystoscopy History of ear surgery History of microdiscectomy History of placement of ear tubes S/P epidural steroid injection Social History household members: spouse Smoking Status: Former smoker alcohol intake: current Smoking Status: Former smoker alcohol intake frequency: 0-2 drinks per day Substance Use Type: does not use Exam Initial Vital Signs Initial Vital Signs: Vital Signs Temperature 97.7 F 02/26/22 10:32 Pulse Rate 97 H 02/26/22 10:32 Respiratory Rate 24 02/26/22 10:32 Blood Pressure 142/75 H 02/26/22 10:32 Pulse Oximetry 99 02/26/22 10:32 Oxygen Delivery Method 02/26/22 10:32 Const General: cooperative, well developed and No ill appearing [facility] Head: normal to inspection and normocephalic Resp Effort & Inspection: normal respiratory effort Cardio Rate: regular rate GI Inspection: normal to inspection and non-distended Palpation: soft, No firm, No guarding and No splenomegaly Back/Spine/Pelvis Back: No CVA tenderness Skin General: no rashes or lesions noted Neuro General: patient alert, patient awake and moves all extremities Extrem General: normal to inspection and capillary refill normal Psych Appearance: grossly normal and well kempt Course Orders Ordered: ED Orders 02/26/22 10:47 Complete Blood Count AUTO DIFF Stat Comprehensive Metabolic Panel Stat Lipase Stat 02/26/22 11:17 CT kidney ureter bladder (KUB) Stat 02/26/22 11:22 Urine Culture Stat Urine Microscopic Stat Discontinued Medications Hydromorphone HCl (Hydromorphone 1 Mg Inj) 1 mg IV NOW ONE Stop: 02/26/22 12:32 Last Admin: 02/26/22 12:38 Dose: 1 mg Documented By: LIN Ketorolac Tromethamine (Ketorolac 30 Mg/Ml Vial) 30 mg IV NOW ONE Stop: 02/26/22 11:18 Last Admin: 02/26/22 11:27 Dose: 30 mg Documented By: NR Ondansetron HCl (Ondansetron 4 Mg/2 Ml Inj) 4 mg IV NOW ONE Stop: 02/26/22 11:18 Last Admin: 02/26/22 11:27 Dose: 4 mg Documented By: LIN Trimethoprim/Sulfamethoxazole (Trimeth/Sulfa 160/800 (Ds) Tablet) 1 tab PO NOW ONE Stop: 02/26/22 13:36 Last Admin: 02/26/22 13:56 Dose: 1 tab Documented By: RUFINA Vital Signs Vital signs: Vital Signs - 8 hr 02/26/22 10:32 02/26/22 10:32 02/26/22 11:00 Temperature 97.7 F Pulse Rate 97 H 99 H Respiratory Rate 24 Blood Pressure 142/75 H 126/65 Pulse Oximetry 99 99 Oxygen Delivery Method Room Air 02/26/22 11:00 02/26/22 11:30 02/26/22 11:30 Temperature Pulse Rate 94 H 90 Respiratory Rate Blood Pressure 141/80 H Pulse Oximetry 99 100 Oxygen Delivery Method 02/26/22 12:00 02/26/22 12:00 02/26/22 12:16 Temperature Pulse Rate 83 Respiratory Rate Blood Pressure 116/57 L 120/69 Pulse Oximetry 97 Oxygen Delivery Method 02/26/22 12:16 02/26/22 12:30 02/26/22 12:30 Temperature Pulse Rate 96 H 88 Respiratory Rate Blood Pressure 121/58 L Pulse Oximetry 97 97 Oxygen Delivery Method 02/26/22 13:00 02/26/22 13:00 02/26/22 13:30 Temperature Pulse Rate 81 85 Respiratory Rate Blood Pressure 120/64 Pulse Oximetry 95 97 Oxygen Delivery Method Medical Decision Making Lab Data Lab results reviewed: Yes I reviewed the patient's lab results. Result diagrams: 02/26/22 10:47 02/26/22 10:47 Labs: Lab Results 02/26/22 02/26/22 02/26/22 Range/Units 10:47 10:47 11:22 WBC 7.8 (4.5-11.0) X10^3/uL RBC 4.22 (4.0-5.2) X10^6/uL Hgb 13.5 (12.0-16.0) g/dL Hct 38.7 (36-46) % MCV 91.7 (80-100) fL MCH 32.1 (26-34) PG MCHC 35.0 (30-36) % RDW 14.1 (11.6-14.8) % Plt Count 236 (150-400) X10^3/uL Neut % (Auto) 75.1 H (50-75) % Lymph % (Auto) 14.8 L (25-40) % [place] % (Auto) 8.9 (3-14) % Eos % (Auto) 0.9 L (2-4) % Baso % (Auto) 0.3 (0-2) % Neut # (Auto) 5900 (3182-9517) /uL Lymph # (Auto) 1200 (5088-4400) /uL [place] # (Auto) 700 (0-900) /uL Eos # (Auto) 100 (0-450) /uL Baso # (Auto) 0 (0-100) /uL Sodium 141 (137-145) mmol/L Potassium 3.6 (3.4-5.1) mmol/L Chloride 103 (98-107) mmol/L Carbon Dioxide 26 (22-32) mmol/L BUN 13 (7-17) mg/dL Creatinine 0.69 (0.52-1.04) mg/dL Estimated GFR > 60 (>60) mL/min BUN/Creatinine Ratio 18.8 (6-22) Glucose 92 (70-100) mg/dL Calcium 9.3 (8.4-10.2) mg/dL Total Bilirubin 1.2 (0.2-1.3) mg/dL AST 27 (14-36) IU/L ALT 36 H (<35) IU/L Alkaline Phosphatase 79 (38-126) U/L Total Protein 7.7 (6.3-8.2) g/dL Albumin 4.5 (3.5-5.0) g/dL Globulin 3.2 (1.7-4.1) g/dL Albumin/Globulin Ratio 1.4 (1.0-2.8) Lipase 75 (23-300) U/L Urine RBC 5-10/hpf H (0-5/HPF) Urine WBC 10-30/hpf H (0-5/HPF) Urine Bacteria Moderate (10-30) H (None) Ur Culture Indicated? Specimen cultured Urine Dip Bedside Urine Glucose Negative Bedside Urine Bilirubin - Negative Bedside Urine Ketone - Negative Urine Specific [place] 1.015 Bedside Urine Occult Blood +++ Bedside Urine pH 6.0 Bedside Urine Protein + 30 Bedside Urine Urobilinogen +/- 1mg Bedside Urine Nitrite - Negative Bedside Urine Leukocytes - Negative Esterase Point of care testing: Urine Dip Bedside Urine Glucose Negative Bedside Urine Bilirubin - Negative Bedside Urine Ketone - Negative Urine Specific [place] 1.015 Bedside Urine Occult Blood +++ Bedside Urine pH 6.0 Bedside Urine Protein + 30 Bedside Urine Urobilinogen +/- 1mg Bedside Urine Nitrite - Negative Bedside Urine Leukocytes - Negative Esterase Imaging Data CT scan - abdomen/pelvis: Radiologist's Impression: [address] [address] [address] Scan Report Signed Patient: Kinjal Slater MR#: [id number] : 1975 Acct:[id number] Age/Sex: 46 / F Date of Service: 02/26/22 Loc: ED Accession Number: [id number] ?? Procedure: CT kidney ureter bladder (KUB) Ordering Provider: Missael Jc D.O. PROCEDURE:? CT KIDNEY URETER BLADDER (KUB) ? INDICATIONS:? L side flank pain eval for stone ? TECHNIQUE:? Axial sections were acquired from the lung bases to the pubic symphysis.? Coronal and sagittal reformats were performed.? For radiation dose reduction, the following was used: ?automated exposure control, adjustment of mA and/or kV according to patient size.? ? COMPARISON:? [facility], CT, CT KIDNEY URETER BLADDER (KUB), 06/28/2018, 10:36. ? FINDINGS: ? Lower thorax: The lung bases are clear.? Heart size normal.? No hiatal hernia. ? Liver:? Normal in size and attenuation. No contour deformity present. ? Biliary system:? No calcified cholelithiasis or pericholecystic inflammation.? No intra or extrahepatic bile duct dilatation. ? Pancreas:? Unremarkable without mass or inflammation evident. ? Spleen:? Normal in size and density. ? Adrenals:? Normal morphology and density. ? Reproductive system:? Unremarkable as visualized. ? Urinary system:? Normal renal size and attenuation.? Incidental extrarenal pelvis noted on the left.? There is a 2 mm nonobstructing right renal calculus present.? No hydronephrosis bilaterally.? No ureteral calculi. ? Gastrointestinal system:? The bowel is unremarkable without evidence of bowel obstruction or inflammation. The stomach appears unremarkable. ? Appendix:? No findings to suggest acute appendicitis. ? Peritoneal spaces:? No mesenteric or retroperitoneal adenopathy.? No free air.? No free fluid.? ? Vasculature:? The IVC, aorta and iliac vasculature are unremarkable. ? Abdominal wall:? Abdominal wall intact without evidence of ventral or inguinal hernias. ? Musculoskeletal:? Normal bone mineralization.? No acute fractures.? ? IMPRESSION: ? 1. Tiny nonobstructing right renal calculus without evidence of hydronephrosis or obstructive uropathy bilaterally. ? Approved by: Rubén Fan M.D. on 02/26/2022 at 11:54? [place] Narrative Medical decision making narrative: Patient has left-sided discomfort. CT scan shows right sided kidney stone but no ureteral stones noted. There is no skin rash that make me concerned for zoster. Her urinalysis does have blood and also bacteria and white blood cells. She does not have leukocytosis pyelonephritis could certainly be the cause of her discomfort. Her LFTs are unremarkable. There is no other CT scan findings that would give etiology for her symptoms. She was given a dose of antibiotics here in the ER. She tolerated this well. No vomiting. No indication for admission to the hospital. Will discharge home with a prescription for antibiotics. She was given return precautions. She expressed understanding and agreement. Discharge Plan Departure Patient Disposition: Home Clinical Impression: Pyelonephritis Instructions: DI for Kidney Infection Activity Restrictions/Additional Instructions: Take the antibiotics as directed. Use the nausea medicine as needed and also the pain medicine as needed. Contact your primary doctor for a follow-up. Return to the emergency department for any new or worsening symptoms. Prescriptions: New sulfamethoxazole-trimethoprim [Bactrim] 400-80 mg tablet 1 tab PO BID 14 Days Qty: 28 0RF ondansetron 4 mg tablet,disintegrating 4 mg PO Q6H PRN (Reason: nausea and vomiting) Qty: 14 0RF tramadol 50 mg tablet 50 mg PO Q4H PRN (Reason: pain) Qty: 7 0RF No Action fluticasone propionate [Flonase Allergy Relief] 50 mcg/actuation spray,suspension 2 spray intranasal DAILY Qty: 16 0RF Rx Instructions: administer into each nostril acetaminophen [Tylenol] 325 mg Tablet 1 dose PO PRN PRN (Reason: pain) oxycodone-acetaminophen [Percocet] 5-325 mg tablet 1 tab PO Q4-6H PRN (Reason: pain) Qty: 14 0RF tamsulosin [Flomax] 0.4 mg capsule 0.4 mg PO DAILY Qty: 7 0RF Referrals: Rick Álvarez MD [Primary Care Provider] -
[2022-02-26] MEDS: ONDANSETRON 4 MG/2 ML INJ IV (11:27)
[2022-02-26] MEDS: KETOROLAC 30 MG/ML VIAL IV (11:27)
[2022-02-26 11:50] LABS: RBC Urine 5-10/HPF (0-5/HPF); WBC Urine 10-30/HPF (0-5/HPF)
[2022-02-26 11:51] LABS: Bacteria Urine Moderate (10-30); Culture Indicated Urine Specimen Cultured
[2022-02-26] MEDS: HYDROMORPHONE 1 MG INJ IV (12:38)
[2022-02-26] MEDS: TRIMETH/SULFA 160/800 (DS) TABLET 1 TAB PO (13:56)
== END 2022-02-26 14:46 | disposition home or self-care (01) ==
PROVIDERS: Emergency Provider Emergency Medicine; Family Provider Family Medicine; PCP Family Medicine
DX: N12 Tubulo-interstitial nephritis, not specified as acute or chronic (principal); Z87.442 Personal history of urinary calculi
CPT/HCPCS: 74176; 80053; 81003; 81015; 83690; 85025; 87077; 87086; 87186; 96374; 96375; 99284; J1170; J1885; J2405

== ENCOUNTER 2022-02-28 08:02 | Emergency (ER) | payer OTHER, SELFPAY ==
[2017-12-31 12:39] VITALS: BMI 28.5
[2022-02-28] VITALS (10 sets, daily range): BP systolic 114–169; BP diastolic 69–107; PULSE 83–120; RESP 16–22; TEMP 37.2; O2SAT 94–98; BMI 29.5
--- NOTE | 2022-02-28 08:28 | DI.CT.S_ITS ---
PROCEDURE: CT ANGIO ABDOMEN PELVIS INDICATIONS: L abd pain and back pain with pain out of proportion TECHNIQUE: After the administration of intravenous contrast, 2.5 mm thick sections acquired from the diaphragm to the symphysis. 10 mm maximum-intensity projection (MIP) reformats were then acquired. For radiation dose reduction, the following was used: automated exposure control. COMPARISON: None. FINDINGS: Image quality: Excellent. Aorta: Visualized segment of the aorta is nonaneurysmal with mild atherosclerotic plaque and calcification. Two right renal arteries appear widely patent. Single left renal artery is widely patent. Celiac axis, superior mesenteric artery, and inferior mesenteric artery are all widely patent. There is no evidence of dissection, penetrating atheromatous ulcer, or other acute aortic abnormality. Extravascular soft tissues: Lung bases are clear. Heart size is normal. Liver is normal in size and enhancement. Gallbladder normal. Biliary system is non dilated. Pancreas enhances normally. Spleen is normal in size and enhancement. No adrenal nodule or mass. Kidneys are normal in size and enhancement, without hydronephrosis. Non opacified bowel loops are normal in wall thickness and caliber. No free fluid or air. No retroperitoneal or mesenteric adenopathy. No ventral hernias. No suspicious bone lesion. No vertebral body compression fractures. IMPRESSION: No dissection or other acute aortic pathology. Dictated by: Kb Murphy M.D. on 02/28/2022 at 9:47 Approved by: Kb Murphy M.D. on 02/28/2022 at 9:51
--- NOTE | 2022-02-28 08:28 | ED.GENADULT ---
HPI - General Adult General Chief complaint: Urogenital-Female Stated complaint: here t-2 kidney infection pain is getting worse Time Seen by Provider: 02/28/22 08:17 Source: patient Mode of arrival: Family Vehicle History of Present Illness HPI narrative: Patient is a 46-year-old female. I evaluated her here in the emergency department approximately 2 days ago for left-sided pain. She had a CT scan performed. Was subsequently discharged home with a diagnosis of pyelonephritis and a prescription for Bactrim. She is been taking the antibiotics as directed. She states that after she arrived home she did pass a stone. She also has had increasing pain in her left-sided abdomen and left lower abdomen and now across her back. She is also been having fevers. Is having dark-colored urine/blood in her urine. No change in bowel habits. Some nausea. Vaginal bleeding. Related Data Home Medications Medication Instructions Recorded Confirmed acetaminophen 325 mg tablet 1 dose PO PRN PRN pain 06/28/18 06/28/18 (Tylenol) Previous Rx's Medication Instructions Recorded oxycodone-acetaminophen 5 mg-325 1 tab PO Q4-6H PRN pain #14 tabs 06/28/18 mg tablet (Percocet) tamsulosin 0.4 mg capsule (Flomax) 0.4 mg PO DAILY #7 caps 06/28/18 fluticasone propionate 50 2 spray intranasal DAILY #16 grams 10/24/21 mcg/actuation nasal spray,suspension (Flonase Allergy Relief) ondansetron 4 mg disintegrating 4 mg PO Q6H PRN nausea and 02/26/22 tablet vomiting #14 tabs sulfamethoxazole 400 1 tab PO BID 14 days #28 tabs 02/26/22 mg-trimethoprim 80 mg tablet (Bactrim) tramadol 50 mg tablet 50 mg PO Q4H PRN pain #7 tabs 02/26/22 hydrocodone 5 mg-acetaminophen 325 1 tab PO Q8H PRN pain #7 tabs 02/28/22 mg tablet Allergies Allergy/AdvReac Type Severity Reaction Status Date / Time levofloxacin [LEVOFLOXACIN] Allergy Intermediate numbness Verified 06/28/18 09:25 gabapentin [GABAPENTIN] Allergy Unknown NAUSEA, Verified 06/28/18 09:25 SWEATS, WEAKNESS Review of Systems Constitutional Constitutional: Reports system reviewed and no additional complaints, except as documented Cardiovascular Cardiovascular: Reports system reviewed and no additional complaints, except as documented Respiratory Respiratory: Reports system reviewed and no additional complaints, except as documented Gastrointestinal Gastrointestinal: Reports system reviewed and no additional complaints, except as documented Genitourinary Genitourinary: Reports system reviewed and no additional complaints, except as documented Integumentary/Breasts Skin/Breast: Reports system reviewed and no additional complaints, except as documented Neurologic Neurologic: Reports system reviewed and no additional complaints, except as documented Hematologic/Lymphatic On Anticoagulants: No Patient History Medical History (Updated 02/28/22 @ 10:25 by Missael Jc DO) Rectocele Recurrent and persistent hematuria Surgical History History of arthroscopic knee surgery History of bilateral tubal ligation History of cystoscopy History of ear surgery History of microdiscectomy History of placement of ear tubes S/P epidural steroid injection Social History household members: spouse Smoking Status: Former smoker alcohol intake: current Smoking Status: Former smoker tobacco type: cigarettes alcohol intake frequency: 0-2 drinks per day Alcohol type: hard liquor Substance Use Type: does not use Exam Initial Vital Signs Initial Vital Signs: Vital Signs Pulse Rate 120 H 02/28/22 08:09 Blood Pressure 169/107 H 02/28/22 08:09 Pulse Oximetry 97 02/28/22 08:09 Const General: cooperative, well developed and No ill appearing HENMT Head: normal to inspection and normocephalic Resp Effort & Inspection: normal respiratory effort Auscultation: clear to auscultation bilaterally Cardio Rate: regular rate Rhythm: regular rhythm GI Inspection: normal to inspection and non-distended Palpation: soft, No firm and tender Back/Spine/Pelvis Back: CVA tenderness left Skin General: no rashes or lesions noted Neuro General: patient alert, patient awake and moves all extremities Extrem General: normal to inspection and capillary refill normal Psych Appearance: grossly normal and well kempt Course Orders Ordered: ED Orders 02/28/22 08:25 Complete Blood Count AUTO DIFF Stat Comprehensive Metabolic Panel Stat Lactate (Lactic Acid) Stat Lipase Stat 02/28/22 08:28 CT angio abdomen pelvis Stat 02/28/22 09:20 Blood Culture Stat Discontinued Medications Hydromorphone HCl (Hydromorphone 1 Mg Inj) 1 mg IV NOW ONE Stop: 02/28/22 08:29 Last Admin: 02/28/22 08:45 Dose: 1 mg Documented By: ARLETTE Sodium Chloride (Normal Saline 0.9%) 1,000 mls @ 1,000 mls/hr IV BOLUS ONE Stop: 02/28/22 09:27 Last Infusion: 02/28/22 10:16 Dose: 0 mls/hr Documented By: Admin: 02/28/22 08:45 Dose: 1,000 mls/hr Documented By: ARLETTE Vital Signs Vital signs: Vital Signs - 8 hr 02/28/22 08:13 02/28/22 08:09 02/28/22 08:09 Temperature 99.0 F Pulse Rate 107 H 120 H Respiratory Rate 22 Blood Pressure 169/107 H 169/107 H Pulse Oximetry 97 97 Oxygen Delivery Method Room Air 02/28/22 08:30 02/28/22 08:49 02/28/22 08:49 Temperature Pulse Rate 98 H 95 H Respiratory Rate Blood Pressure 128/69 Pulse Oximetry 95 94 Oxygen Delivery Method 02/28/22 09:00 02/28/22 09:00 02/28/22 09:39 Temperature Pulse Rate 96 H 96 H Respiratory Rate Blood Pressure 123/69 Pulse Oximetry 95 98 Oxygen Delivery Method 02/28/22 09:41 02/28/22 09:41 02/28/22 09:52 Temperature Pulse Rate 91 H 95 H Respiratory Rate Blood Pressure 127/73 Pulse Oximetry 97 96 Oxygen Delivery Method 02/28/22 09:52 02/28/22 10:00 02/28/22 10:00 Temperature Pulse Rate 89 Respiratory Rate Blood Pressure 119/71 114/73 Pulse Oximetry 96 Oxygen Delivery Method Medical Decision Making Lab Data Lab results reviewed: Yes I reviewed the patient's lab results. Result diagrams: 02/28/22 08:25 02/28/22 08:25 Labs: Lab Results 02/28/22 02/28/22 02/28/22 Range/Units 08:25 08:25 08:25 WBC 6.7 (4.5-11.0) X10^3/uL RBC 4.10 (4.0-5.2) X10^6/uL Hgb 13.0 (12.0-16.0) g/dL Hct 37.8 (36-46) % MCV 92.3 (80-100) fL MCH 31.6 (26-34) PG MCHC 34.3 (30-36) % RDW 13.5 (11.6-14.8) % Plt Count 236 (150-400) X10^3/uL Neut % (Auto) 70.2 (50-75) % Lymph % (Auto) 15.1 L (25-40) % [place] % (Auto) 13.3 (3-14) % Eos % (Auto) 1.2 L (2-4) % Baso % (Auto) 0.2 (0-2) % Neut # (Auto) 4700 (0625-8182) /uL Lymph # (Auto) 1000 L (4561-2118) /uL [place] # (Auto) 900 (0-900) /uL Eos # (Auto) 100 (0-450) /uL Baso # (Auto) 0 (0-100) /uL Sodium 136 L (137-145) mmol/L Potassium 3.8 (3.4-5.1) mmol/L Chloride 100 (98-107) mmol/L Carbon Dioxide 24 (22-32) mmol/L BUN 9 (7-17) mg/dL Creatinine 0.74 (0.52-1.04) mg/dL Estimated GFR > 60 (>60) mL/min BUN/Creatinine Ratio 12.2 (6-22) Glucose 97 (70-100) mg/dL Lactate 0.9 (0.7-2.1) mmol/L Calcium 8.8 (8.4-10.2) mg/dL Total Bilirubin 1.0 (0.2-1.3) mg/dL AST 59 H (14-36) IU/L ALT 86 H (<35) IU/L Alkaline Phosphatase 115 (38-126) U/L Total Protein 7.9 (6.3-8.2) g/dL Albumin 4.3 (3.5-5.0) g/dL Globulin 3.6 (1.7-4.1) g/dL Albumin/Globulin Ratio 1.2 (1.0-2.8) Lipase 42 (23-300) U/L Imaging Data CT scan - abdomen/pelvis: Radiologist's Impression: [address] [address] [address] Scan Report Signed Patient: Kinjal Slater MR#: [id number] : 1975 Acct:[id number] Age/Sex: 46 / F Date of Service: 02/28/22 Loc: ED Accession Number: [id number] ?? Procedure: CT angio abdomen pelvis Ordering Provider: Missael Jc D.O. PROCEDURE:? CT ANGIO ABDOMEN PELVIS ? INDICATIONS:? L abd pain and back pain with pain out of proportion ? TECHNIQUE:? After the administration of intravenous contrast, 2.5 mm thick sections acquired from the diaphragm to the symphysis.? 10 mm maximum-intensity projection (MIP) reformats were then acquired.? For radiation dose reduction, the following was used:? automated exposure control.? ? COMPARISON:? None. ? FINDINGS:? Image quality:? Excellent.? ? Aorta:? Visualized segment of the aorta is nonaneurysmal with mild atherosclerotic plaque and calcification.? Two right renal arteries appear widely patent.? Single left renal artery is widely patent.? Celiac axis, superior mesenteric artery, and inferior mesenteric artery are all widely patent.? There is no evidence of dissection, penetrating atheromatous ulcer, or other acute aortic abnormality. ? Extravascular soft tissues:? Lung bases are clear.? Heart size is normal.? Liver is normal in size and enhancement.? Gallbladder normal.? Biliary system is non dilated.? Pancreas enhances normally.? Spleen is normal in size and enhancement.? No adrenal nodule or mass.? Kidneys are normal in size and enhancement, without hydronephrosis.? Non opacified bowel loops are normal in wall thickness and caliber.? No free fluid or air.? No retroperitoneal or mesenteric adenopathy.? No ventral hernias.? No suspicious bone lesion.? No vertebral body compression fractures.? ? IMPRESSION: ? No dissection or other acute aortic pathology. ? Dictated by: Kb Murphy M.D. on 02/28/2022 at 9:47 ? ? Approved by: Kb Murphy M.D. on 02/28/2022 at 9:51? MDM Narrative Medical decision making narrative: Her labs today are unchanged from prior. She is a normal kidney function. Review of her medical record shows that she did have a pansensitive E coli so the Bactrim that she is currently on should work for her infection. The CT scan today shows no signs of vascular injury to include renal artery issues. The CT scan today also does not mentioned the small stone in her right kidney and that may have been what she passed a couple days ago. This does not explain the pain that she is having on the left side. There is no indication for surgical consultation. No indication for changing any medications. During my final evaluation of her she stated that she was having some sores on her mouth. On her tongue she does have what appears to be irritation but no signs of any blisters. There are no other mucous membrane involvement. I did consider Love Bryon syndrome since she is on Bactrim however she is no other rashes. I feel this is unlikely to will not change any medications. She was given strict return precautions with regard to this. Will send home with pain medication and have her continue to take her antibiotics as directed. She was given return precautions. She expressed understanding and agreement. Discharge Plan Departure Patient Disposition: Home Clinical Impression: Pyelonephritis, Abdominal pain Instructions: DI for Abdominal Pain-Adult Activity Restrictions/Additional Instructions: I recommend that you continue to take all of your medications as directed to include your antibiotics. If he started develop worsening symptoms or rashes like we discussed return to the emergency department. Prescriptions: New hydrocodone-acetaminophen 5-325 mg tablet 1 tab PO Q8H PRN (Reason: pain) Qty: 7 0RF No Action fluticasone propionate [Flonase Allergy Relief] 50 mcg/actuation spray,suspension 2 spray intranasal DAILY Qty: 16 0RF Rx Instructions: administer into each nostril acetaminophen [Tylenol] 325 mg Tablet 1 dose PO PRN PRN (Reason: pain) oxycodone-acetaminophen [Percocet] 5-325 mg tablet 1 tab PO Q4-6H PRN (Reason: pain) Qty: 14 0RF tamsulosin [Flomax] 0.4 mg capsule 0.4 mg PO DAILY Qty: 7 0RF sulfamethoxazole-trimethoprim [Bactrim] 400-80 mg tablet 1 tab PO BID 14 Days Qty: 28 0RF ondansetron 4 mg tablet,disintegrating 4 mg PO Q6H PRN (Reason: nausea and vomiting) Qty: 14 0RF tramadol 50 mg tablet 50 mg PO Q4H PRN (Reason: pain) Qty: 7 0RF Referrals: Rick Álvarez MD [Primary Care Provider] -
[2022-02-28 08:42] LABS: Add Manual Diff / Slide Review NO; Basophils Absolute Auto 0 /uL (0-100); Basophils Percent Auto 0.2 % (0-2); Eosinophils Absolute Auto 100 /uL (0-450); Eosinophils Percent Auto 1.2 % (2-4); Hematocrit 37.8 % (36-46); Lymphocytes Absolute Auto 1000 /uL (1100-4500); Lymphocytes Percent Auto 15.1 % (25-40); Mean Corpuscular HGB Conc 34.3 % (30-36); Mean Corpuscular Hemoglobin 31.6 PG (26-34); Mean Corpuscular Volume 92.3 fL (80-100); Monocytes Absolute Auto 900 /uL (0-900); Monocytes Percent Auto 13.3 % (3-14); Neutrophils Absolute Auto 4700 /uL (1500-7000); Neutrophils Percent Auto 70.2 % (50-75); Platelet Count 236 X10^3/uL (150-400); Red Cell Distribution Width 13.5 % (11.6-14.8); White Blood Cell Count 6.7 X10^3/uL (4.5-11.0)
[2022-02-28] MEDS: HYDROMORPHONE 1 MG INJ IV (08:45)
[2022-02-28] MEDS: SODIUM CHLORIDE 0.9% 1,000 ML 1000 ML IV (08:45)
[2022-02-28 09:03] LABS: Alanine Aminotransferase 86 IU/L (<35); Albumin 4.3 g/dL (3.5-5.0); Albumin Globulin Ratio 1.2 (1.0-2.8); Alkaline Phosphatase 115 U/L (38-126); Aspartate Aminotransferase 59 IU/L (14-36); BUN Creatinine Ratio 12.2 (6-22); Blood Urea Nitrogen 9 mg/dL (7-17); Calcium 8.8 mg/dL (8.4-10.2); Carbon Dioxide 24 mmol/L (22-32); Chloride 100 mmol/L (98-107); Estimated Glomerular Filt Rate > 60 mL/min (>60); Globulin 3.6 g/dL (1.7-4.1); Glucose 97 mg/dL (70-100); HEMOLYSIS < 15 (0-50); Lactate (Lactic Acid) 0.9 mmol/L (0.7-2.1); Lipase 42 U/L (23-300); Potassium 3.8 mmol/L (3.4-5.1); Sodium 136 mmol/L (137-145); Total Protein 7.9 g/dL (6.3-8.2)
== END 2022-02-28 10:41 | disposition home or self-care (01) ==
PROVIDERS: Emergency Provider Emergency Medicine; Family Provider Family Medicine; PCP Family Medicine
DX: N12 Tubulo-interstitial nephritis, not specified as acute or chronic (principal); R10.32 Left lower quadrant pain; Z87.442 Personal history of urinary calculi
CPT/HCPCS: 36415; 74174; 80053; 83605; 83690; 85025; 87040; 96361; 96374; 99284; J1170; Q9967

== ENCOUNTER 2022-08-20 12:15 | Emergency (ER) | payer OTHER, BC, SELFPAY ==
[2017-12-31 12:39] VITALS: BMI 28.5
[2022-08-20 12:29] VITALS: BP 97/61; PULSE 86; RESP 16; TEMP 36.5; O2SAT 97; BMI 29.7
[2022-08-20 13:39] LABS: RBC Urine 0-1/HPF (0-5/HPF); Squamous Epithelial Cell Urine 0-1 /HPF (0-5/HPF); WBC Urine 0-1/HPF (0-5/HPF)
[2022-08-20 13:40] LABS: Bacteria Urine Occasional (0-1); Culture Indicated Urine Cult Not Indicated
--- NOTE | 2022-08-20 14:04 | DI.CT.S_ITS ---
PROCEDURE: CT ABDOMEN PELVIS W CON INDICATIONS: Pelvis inflammation, lumbar radiculopathy, left flank pain, TECHNIQUE: After the administration of IV contrast, axial sections were acquired from the lung bases to the pubic symphysis. Coronal and sagittal reformats were performed. For radiation dose reduction, the following was used: automated exposure control, adjustment of mA and/or kV according to patient size. COMPARISON: [facility], CT, CT KIDNEY URETER BLADDER (KUB), 02/26/2022, 13:08. [facility], CT, CT ANGIO ABDOMEN PELVIS, 02/28/2022, 8:58. FINDINGS: Image quality: Excellent. Lung bases: Unremarkable. Heart: No significant findings. ABDOMEN: Liver: Diffuse fatty liver infiltration is noted. Gallbladder: Unremarkable. Biliary ducts: Unremarkable. Pancreas: Unremarkable. Spleen: Unremarkable. Incidental note is made of an accessory splenule along the hilum of the primary spleen. Adrenal Glands: Unremarkable. Kidneys and Ureters: The kidneys demonstrate normal size and enhance symmetrically. There is no hydronephrosis. Stomach and Bowel: Stomach, small bowel loops, and colon are unremarkable. Minimal distal colonic diverticulosis is seen, without findings of active diverticulitis. Peritoneum: No abnormal intraperitoneal fluid. No free air. Ventral Wall: No hernia. Abdominal Nodes: No retroperitoneal or mesenteric adenopathy by size criteria. Vessels: Aorta and inferior vena cava are normal in size. PELVIS: Pelvic Organs: This patient is status post hysterectomy. No adnexal masses are seen. Bladder: Unremarkable. Pelvic Nodes: No enlarged lymph nodes. Miscellaneous: No inguinal hernias are seen. Pelvic phleboliths are incidentally noted. Bones: L5-S1 degenerative change is seen. Milder degenerative changes are seen elsewhere. IMPRESSION: No imaging explanation is found for this patient's presenting symptoms. Colonic diverticulosis is seen, without findings of active diverticulitis. Pelvic phleboliths are seen, without ureteral stones identified in this patient with left flank pain. Focal L5-S1 degenerative change. Additional findings: Fatty liver infiltration Accessory splenule Hysterectomy Dictated by: Emery Guajardo M.D. on 08/20/2022 at 13:53 Approved by: Emery Guajardo M.D. on 08/20/2022 at 13:57
--- NOTE | 2022-08-20 14:10 | ED.FEMALEGU ---
HPI - Female Genitourinary <Magdalena Howard, [facility] - Last Filed: 08/20/22 16:30> General Chief complaint: Urogenital-Female Stated complaint: PEEING blood since last night, pain L hip,swelli Time Seen by Provider: 08/20/22 13:11 Source: patient Mode of arrival: Ambulatory History of Present Illness HPI Narrative: This is a 47-year-old female with history of hysterectomy without oophorectomy but had cystocele and rectocele completed at that time who presents emergency department with worsening left hip pain over the last week. She states that she had hematuria this morning for the 1st time, states that she did drink a lot of water and is now voiding clear but this morning had blood from her urine. Denies any blood coming from her stool but states that she has autoimmune disease family with a daughter with ulcerative colitis in his son with rheumatoid arthritis. She has history left-sided nephrolithiasis 6 months ago, also has history of diskectomy of L5-S1 and has history of lumbar radiculopathy. She denies any recent fever chills, denies urinary incontinence, urgency or dysuria. States that she had 3 days of diarrhea last week but denies any blood in her stool, denies any blood coming from her anus. Related Data Home Medications Medication Instructions Recorded Confirmed acetaminophen 325 mg tablet 1 dose PO PRN PRN pain 06/28/18 06/28/18 (Tylenol) Previous Rx's Medication Instructions Recorded oxycodone-acetaminophen 5 mg-325 1 tab PO Q4-6H PRN pain #14 tabs 06/28/18 mg tablet (Percocet) tamsulosin 0.4 mg capsule (Flomax) 0.4 mg PO DAILY #7 caps 06/28/18 fluticasone propionate 50 2 spray intranasal DAILY #16 grams 10/24/21 mcg/actuation nasal spray,suspension (Flonase Allergy Relief) ondansetron 4 mg disintegrating 4 mg PO Q6H PRN nausea and 02/26/22 tablet vomiting #14 tabs tramadol 50 mg tablet 50 mg PO Q4H PRN pain #7 tabs 02/26/22 hydrocodone 5 mg-acetaminophen 325 1 tab PO Q8H PRN pain #7 tabs 02/28/22 mg tablet ibuprofen 600 mg tablet 600 mg PO Q8H PRN fever or pain 08/20/22 #30 tabs lidocaine 5 % topical patch 1 patch topical DAILY PRN back 08/20/22 (Lidoderm) pain #30 ea methocarbamol 750 mg tablet 750 mg PO Q8H PRN muscle spasm #30 08/20/22 tabs nitrofurantoin macrocrystal 100 mg 100 mg PO BID 5 days #10 caps 08/20/22 capsule prednisone 20 mg tablet 20 mg PO DAILY 4 days #4 tabs 08/20/22 Allergies Allergy/AdvReac Type Severity Reaction Status Date / Time levofloxacin [LEVOFLOXACIN] Allergy Intermediate numbness Verified 06/28/18 09:25 gabapentin [GABAPENTIN] Allergy Unknown NAUSEA, Verified 06/28/18 09:25 SWEATS, WEAKNESS Review of Systems <JACOB Davidson - Last Filed: 08/20/22 16:30> Review of Systems ROS Unobtainable: All systems reviewed & are unremarkable except as noted in HPI and below Patient History <JACOB Davidson - Last Filed: 08/20/22 16:30> Medical History (Updated 08/20/22 @ 15:35 by JACOB Davidson) Rectocele Recurrent and persistent hematuria Surgical History History of arthroscopic knee surgery History of bilateral tubal ligation History of cystoscopy History of ear surgery History of microdiscectomy History of placement of ear tubes S/P epidural steroid injection tobacco type: cigarettes alcohol intake frequency: 0-2 drinks per day Alcohol type: hard liquor Substance Use Type: does not use Exam <JACOB Davidson - Last Filed: 08/20/22 16:30> Narrative Exam Narrative: Reviewed vitals signs and nursing notes. General: Pleasant, sitting upright, in no acute distress, well groomed, afebrile HEENT: symmetrical facial expressions, moist mucous membranes, neck is supple CV: regular rate and rhythm, warm extremities Respiratory: normal work of breathing, without tachypnea or hypoxia. GI: abdomen soft, nondistended, without CVA tenderness bilaterally. MSK: moves all extremities, no weakness, normal tone, ambulatory without deficit Skin: brisk capillary refill, without rash or wound Neuro: clear speech and normal cognition, A&O x3, GCS 15, no focal motor or sensation deficits Initial Vital Signs Initial Vital Signs: Vital Signs Temperature 97.7 F 08/20/22 12:29 Pulse Rate 86 08/20/22 12:29 Respiratory Rate 16 08/20/22 12:29 Blood Pressure 97/61 08/20/22 12:29 Pulse Oximetry 97 08/20/22 12:29 Oxygen Delivery Method Room Air 08/20/22 12:29 <Missael Jc DO - Last Filed: 08/20/22 14:36> Initial Vital Signs Initial Vital Signs: Vital Signs Temperature 97.7 F 08/20/22 12:29 Pulse Rate 86 08/20/22 12:29 Respiratory Rate 16 08/20/22 12:29 Blood Pressure 97/61 08/20/22 12:29 Pulse Oximetry 97 08/20/22 12:29 Oxygen Delivery Method Room Air 08/20/22 12:29 Course <JACOB Davidson - Last Filed: 08/20/22 16:30> Orders Ordered: ED Orders 08/20/22 12:36 Chlamydia Gonorrhea PCR -URINE Stat Urine Microscopic Stat 08/20/22 14:04 CT abdomen pelvis w con Stat Wet Prep Tric BV Rosibel Stat 08/20/22 15:00 CBC Auto Diff [Complete Blood Count AUTO DIFF] Stat 08/20/22 16:00 CMP [Comprehensive Metabolic Panel] Stat CRP [C-Reactive Protein Quant] Stat Discontinued Medications Diazepam (Diazepam 5 Mg Tablet) 5 mg PO NOW ONE Stop: 08/20/22 15:01 Last Admin: 08/20/22 15:21 Dose: 5 mg Documented By: LIZ Ketorolac Tromethamine (Ketorolac 30 Mg/Ml Vial) 15 mg IV NOW ONE Stop: 08/20/22 14:05 Last Admin: 08/20/22 14:21 Dose: 15 mg Documented By: LIZ Lidocaine (Lidocaine Patch 1 Each Adh..Patch) 1 each TOP NOW ONE Stop: 08/20/22 15:01 Last Admin: 08/20/22 15:22 Dose: 1 each Documented By: LIZ Nitrofurantoin Macrocrystals (Nitrofurantoin Er 100 Mg Capsule) 100 mg PO NOW ONE Stop: 08/20/22 15:01 Last Admin: 08/20/22 15:22 Dose: 100 mg Documented By: LIZ Phenazopyridine HCl (Phenazopyridine 100 Mg Tablet) 100 mg PO NOW ONE Stop: 08/20/22 15:01 Last Admin: 08/20/22 15:22 Dose: 100 mg Documented By: LIZ Prednisone (Prednisone 20 Mg Tablet) 20 mg PO NOW ONE Stop: 08/20/22 15:01 Last Admin: 08/20/22 15:22 Dose: 20 mg Documented By: LIZ Vital Signs Vital signs: Vital Signs - 8 hr 08/20/22 12:29 Temperature 97.7 F Pulse Rate 86 Respiratory Rate 16 Blood Pressure 97/61 Pulse Oximetry 97 Oxygen Delivery Method Room Air <Missael Jc DO - Last Filed: 08/20/22 14:36> Orders Ordered: ED Orders 08/20/22 12:36 Chlamydia Gonorrhea PCR -URINE Stat Urine Microscopic Stat 08/20/22 14:04 CT abdomen pelvis w con Stat Wet Prep Tric BV Rosibel Stat 08/20/22 15:00 CBC Auto Diff [Complete Blood Count AUTO DIFF] Stat 08/20/22 16:00 CMP [Comprehensive Metabolic Panel] Stat CRP [C-Reactive Protein Quant] Stat Discontinued Medications Diazepam (Diazepam 5 Mg Tablet) 5 mg PO NOW ONE Stop: 08/20/22 15:01 Last Admin: 08/20/22 15:21 Dose: 5 mg Documented By: LIZ Ketorolac Tromethamine (Ketorolac 30 Mg/Ml Vial) 15 mg IV NOW ONE Stop: 08/20/22 14:05 Last Admin: 08/20/22 14:21 Dose: 15 mg Documented By: LIZ Lidocaine (Lidocaine Patch 1 Each Adh..Patch) 1 each TOP NOW ONE Stop: 08/20/22 15:01 Last Admin: 08/20/22 15:22 Dose: 1 each Documented By: LIZ Nitrofurantoin Macrocrystals (Nitrofurantoin Er 100 Mg Capsule) 100 mg PO NOW ONE Stop: 08/20/22 15:01 Last Admin: 08/20/22 15:22 Dose: 100 mg Documented By: LIZ Phenazopyridine HCl (Phenazopyridine 100 Mg Tablet) 100 mg PO NOW ONE Stop: 08/20/22 15:01 Last Admin: 08/20/22 15:22 Dose: 100 mg Documented By: LIZ Prednisone (Prednisone 20 Mg Tablet) 20 mg PO NOW ONE Stop: 08/20/22 15:01 Last Admin: 08/20/22 15:22 Dose: 20 mg Documented By: LIZ Vital Signs Vital signs: Vital Signs - 8 hr 08/20/22 12:29 Temperature 97.7 F Pulse Rate 86 Respiratory Rate 16 Blood Pressure 97/61 Pulse Oximetry 97 Oxygen Delivery Method Room Air MDM - Female Genitourinary <Magdalena Senait Baezjosefina, [employer] - Last Filed: 08/20/22 16:30> Lab Data 08/20/22 15:00 08/20/22 16:00 Labs: Lab Results 08/20/22 08/20/22 08/20/22 Range/Units 12:36 12:36 15:00 WBC 6.0 (4.5-11.0) X10^3/uL RBC 4.30 (4.0-5.2) X10^6/uL Hgb 13.8 (12.0-16.0) g/dL Hct 39.6 (36-46) % MCV 92.0 (80-100) fL MCH 32.1 (26-34) PG MCHC 34.9 (30-36) % RDW 13.7 (11.6-14.8) % Plt Count 245 (150-400) X10^3/uL Neut % (Auto) 63.1 (50-75) % Lymph % (Auto) 26.3 (25-40) % [place] % (Auto) 8.5 (3-14) % Eos % (Auto) 1.5 L (2-4) % Baso % (Auto) 0.6 (0-2) % Neut # (Auto) 3800 (4587-5453) /uL Lymph # (Auto) 1600 (9194-5257) /uL [place] # (Auto) 500 (0-900) /uL Eos # (Auto) 100 (0-450) /uL Baso # (Auto) 0 (0-100) /uL Urine RBC 0-1/hpf (0-5/HPF) Urine WBC 0-1/hpf (0-5/HPF) Ur Squamous Epith Cells 0-1 /hpf D (0-5/HPF) Urine Bacteria Occasional (0-1) (None) Ur Culture Indicated? Cult not indicated Ur Chlamydia DNA (PCR) Not detected N gonorrhoeae DNA (PCR) Not detected Urine Dip Bedside Urine Glucose Negative Bedside Urine Bilirubin - Negative Bedside Urine Ketone - Negative Urine Specific [place] 1.000 Bedside Urine Occult Blood +/- Bedside Urine pH 6.0 Bedside Urine Protein - Negative Bedside Urine Urobilinogen - Negative Bedside Urine Nitrite - Negative Bedside Urine Leukocytes - Negative Esterase Imaging Data CT scan - abdomen/pelvis: Radiologist's Impression: PROCEDURE:? CT ABDOMEN PELVIS W CON ? INDICATIONS:? Pelvis inflammation, lumbar radiculopathy, left flank pain, ? TECHNIQUE:? After the administration of IV contrast, axial sections were acquired from the lung bases to the pubic symphysis.? Coronal and sagittal reformats were performed.? For radiation dose reduction, the following was used:? automated exposure control, adjustment of mA and/or kV according to patient size. ? COMPARISON:? [facility], CT, CT KIDNEY URETER BLADDER (KUB), 02/26/2022, 13:08.? [facility], CT, CT ANGIO ABDOMEN PELVIS, 02/28/2022, 8:58. ? FINDINGS:? Image quality:? Excellent.? ? Lung bases:? Unremarkable.? ? Heart:? No significant findings. ? ? ABDOMEN: Liver: Diffuse fatty liver infiltration is noted.? Gallbladder:? Unremarkable.? ? Biliary ducts:? Unremarkable.? ? Pancreas:? Unremarkable.? ? Spleen:? Unremarkable.? ? Incidental note is made of an accessory splenule along the hilum of the primary spleen. Adrenal Glands:? Unremarkable.? ? Kidneys and Ureters:? The kidneys demonstrate normal size and enhance symmetrically.? There is no hydronephrosis.? ? Stomach and Bowel:? Stomach, small bowel loops, and colon are unremarkable.? Minimal distal colonic diverticulosis is seen, without findings of active diverticulitis. Peritoneum:? No abnormal intraperitoneal fluid.? No free air.? ? Ventral Wall: ? No hernia.? Abdominal Nodes:? No retroperitoneal or mesenteric adenopathy by size criteria.? Vessels:? Aorta and inferior vena cava are normal in size.? ? PELVIS: Pelvic Organs: This patient is status post hysterectomy. No adnexal masses are seen.? Bladder:? Unremarkable.? ? Pelvic Nodes: No enlarged lymph nodes.? Miscellaneous: No inguinal hernias are seen. ? ? Pelvic phleboliths are incidentally noted.? ? Bones:? L5-S1 degenerative change is seen.? Milder degenerative changes are seen elsewhere.? ? ? IMPRESSION:? ? No imaging explanation is found for this patient's presenting symptoms.? ? Colonic diverticulosis is seen, without findings of active diverticulitis. ? Pelvic phleboliths are seen, without ureteral stones identified in this patient with left flank pain. ? Focal L5-S1 degenerative change. ? ? Additional findings:? Fatty liver infiltration Accessory splenule Hysterectomy ? Dictated by: Emery Guajardo M.D. on 08/20/2022 at 13:53 ? ? Approved by: Emery Guajardo M.D. on 08/20/2022 at 13:57 ? MDM Narrative Medical decision making narrative: Chief Complaint: Left-sided flank and abdominal pain, now resolved Independent historian: Patient Multiple etiologies for patient's symptoms considered including, but not limited to: Colitis, gastroenteritis, lumbar radiculopathy acute viral process, dehydration, constipation, diverticulitis, nephrolithiasis, urinary tract infection, pyelonephritis, cauda equina, degenerative disc disease I have independently reviewed the patient's vital signs and nursing notes as well as prior records if available. Pertinent records include: Prior abdomen pelvis CTA from 02/28/2022 without acute abnormality My interpretation of lab studies: CBC is unremarkable, no leukocytosis or anemia, gonorrhea and chlamydia negative, UA shows occasional bacteria, possible contaminant but no significant bacteria, wbc's or RBCs, chemistries unremarkable. My interpretation of imaging: CT abdomen pelvis does show acute abnormality or obstructive uropathy Course of care: Patient's pain and symptoms were treated with lidocaine patch, Valium, Toradol, Pyridium, Macrobid and prednisone. She had hematuria which she showed me on photos this morning with confidence that it came from her urethra. She is without dysuria, urinary frequency or urgency, had diarrhea 3 days ago which has resolved. Endorses feeling a headache, this could be gastroenteritis or other viral syndrome. Since she has history of nephrolithiasis, urine was cultured and likely dilute as patient states she hydrated this morning after she noticed she had blood in her urine. Opted to treat patient with 5 days of Macrobid as she has history of bladder prolapse following her hysterectomy with preserved bilateral ovaries. Patient was a previous patient of Dr. Burton however she no longer works here and I have referred patient to follow-up with Dr. Junior for evaluation of her pelvic organ prolapse. She will continue on her normal medications, and complete a 5 day course of Macrobid, I will be treating her left hip pain as if it is lumbar radiculopathy as her CT shows most degeneration between her L5 and S1 where she has history of diskectomy. This is most likely lumbar radiculopathy. She does not have any incontinence, urinary retention, history of IV substance abuse, and does not have any extremity weakness or mobility challenges at this time. Social considerations that may affect disposition: none Questions are addressed and there is agreement with the plan and for follow-up. I consulted with the ED attending physician Dr. Jc as needed for higher level of care considerations and they were available for discussion and recommendations regarding plan of care and diagnostic testing. Patient is appropriate for outpatient management. <Missael Jc, DO - Last Filed: 08/20/22 14:36> Lab Data Labs: Lab Results 08/20/22 08/20/22 08/20/22 Range/Units 12:36 12:36 15:00 WBC 6.0 (4.5-11.0) X10^3/uL RBC 4.30 (4.0-5.2) X10^6/uL Hgb 13.8 (12.0-16.0) g/dL Hct 39.6 (36-46) % MCV 92.0 (80-100) fL MCH 32.1 (26-34) PG MCHC 34.9 (30-36) % RDW 13.7 (11.6-14.8) % Plt Count 245 (150-400) X10^3/uL Neut % (Auto) 63.1 (50-75) % Lymph % (Auto) 26.3 (25-40) % [place] % (Auto) 8.5 (3-14) % Eos % (Auto) 1.5 L (2-4) % Baso % (Auto) 0.6 (0-2) % Neut # (Auto) 3800 (7533-4554) /uL Lymph # (Auto) 1600 (6222-3835) /uL [place] # (Auto) 500 (0-900) /uL Eos # (Auto) 100 (0-450) /uL Baso # (Auto) 0 (0-100) /uL Urine RBC 0-1/hpf (0-5/HPF) Urine WBC 0-1/hpf (0-5/HPF) Ur Squamous Epith Cells 0-1 /hpf D (0-5/HPF) Urine Bacteria Occasional (0-1) (None) Ur Culture Indicated? Cult not indicated Ur Chlamydia DNA (PCR) Not detected N gonorrhoeae DNA (PCR) Not detected Urine Dip Bedside Urine Glucose Negative Bedside Urine Bilirubin - Negative Bedside Urine Ketone - Negative Urine Specific [place] 1.000 Bedside Urine Occult Blood +/- Bedside Urine pH 6.0 Bedside Urine Protein - Negative Bedside Urine Urobilinogen - Negative Bedside Urine Nitrite - Negative Bedside Urine Leukocytes - Negative Esterase Discharge Plan Departure Patient Disposition: Home Clinical Impression: Acute lumbar radiculopathy Hematuria Qualifiers: Hematuria type: unspecified type Qualified Code(s): R31.9 - Hematuria, unspecified Instructions: Blood in Urine, DI for Lumbar Radiculopathy Activity Restrictions/Additional Instructions: *You have been diagnosed with flank pain for the last week with hematuria today. The CT does not show any abnormalities, I have given you prophylactic antibiotic for the urine and bladder which you can take twice a day for the next 5 days. Please use lidocaine patches every 12 hours in the middle of your back to help treat this low back pain as this may be worsening your hip pain., no elevation of your white blood cell count, and I do not think that this is infection. This may be a viral GI illness like gastroenteritis or other viral illness which caused mild colitis or other inflammation. Please take ibuprofen every 6 hours with food and water to help treat this as well as take the steroid each morning for the next few days. Use a muscle relaxer as needed for spasms and or to help you sleep. Please follow-up with your primary care provider as needed and schedule follow-up with Dr. Junior for evaluation of your bladder prolapse. I hope you feel better soon. *What to do: *Please continue to take your regular medications as directed. [x ] New medication prescriptions sent to your pharmacy: [[facility] ] [ ] New medication written as a paper prescription [ ] No new medications given *Please call and schedule follow up with your primary care provider in 2-3 days, at least for an update. Let them know you were seen in the Emergency Department for the above problem. We will electronically transmit a record of today's note if your PCP or specialist is in our system. *If you do not have a primary care provider please contact [phone] to establish care with one of the [facility] primary care providers. *Return to the Emergency Department for worsening symptoms, inability to keep liquids down, fever greater than 101F, chills, or other concerning symptom. Prescriptions: New methocarbamol 750 mg tablet 750 mg PO Q8H PRN (Reason: muscle spasm) Qty: 30 0RF prednisone 20 mg tablet 20 mg PO DAILY 4 Days Qty: 4 0RF ibuprofen 600 mg tablet 600 mg PO Q8H PRN (Reason: fever or pain) Qty: 30 0RF Rx Instructions: Take with food and water nitrofurantoin macrocrystal 100 mg capsule 100 mg PO BID 5 Days Qty: 10 0RF Rx Instructions: must administer with a meal/food lidocaine [Lidoderm] 5 % adhesive patch,medicated 1 patch topical DAILY PRN (Reason: back pain) Qty: 30 0RF Rx Instructions: leave on most painful area for up to 12 hrs No Action fluticasone propionate [Flonase Allergy Relief] 50 mcg/actuation spray,suspension 2 spray intranasal DAILY Qty: 16 0RF Rx Instructions: administer into each nostril acetaminophen [Tylenol] 325 mg Tablet 1 dose PO PRN PRN (Reason: pain) oxycodone-acetaminophen [Percocet] 5-325 mg tablet 1 tab PO Q4-6H PRN (Reason: pain) Qty: 14 0RF tamsulosin [Flomax] 0.4 mg capsule 0.4 mg PO DAILY Qty: 7 0RF ondansetron 4 mg tablet,disintegrating 4 mg PO Q6H PRN (Reason: nausea and vomiting) Qty: 14 0RF tramadol 50 mg tablet 50 mg PO Q4H PRN (Reason: pain) Qty: 7 0RF hydrocodone-acetaminophen 5-325 mg tablet 1 tab PO Q8H PRN (Reason: pain) Qty: 7 0RF Referrals: Chayo Junior MD [Physician] - (Please call to schedule an appointment to schedule follow-up for evaluation of your prolapse) Rick Álvarez MD [Primary Care Provider] - Stand Alone Forms: Patient Portal/API <Missael Jc DO - Last Filed: 08/20/22 14:36> Cosign ED Attending Cosignature Attestation: Dr Jc Co-Sign Statement: I was available for consultation during this patient's emergency department visit. This chart is signed by myself for administrative purposes only. I did not have direct contact with this patient during this visit. They were seen independently by the APC.
[2022-08-20] MEDS: KETOROLAC 30 MG/ML VIAL 15 MG IV (14:21)
[2022-08-20 15:12] LABS: Add Manual Diff / Slide Review NO; Basophils Absolute Auto 0 /uL (0-100); Basophils Percent Auto 0.6 % (0-2); Eosinophils Absolute Auto 100 /uL (0-450); Eosinophils Percent Auto 1.5 % (2-4); Hematocrit 39.6 % (36-46); Hemoglobin 13.8 g/dL (12.0-16.0); Lymphocytes Absolute Auto 1600 /uL (1100-4500); Lymphocytes Percent Auto 26.3 % (25-40); Mean Corpuscular HGB Conc 34.9 % (30-36); Mean Corpuscular Hemoglobin 32.1 PG (26-34); Monocytes Absolute Auto 500 /uL (0-900); Monocytes Percent Auto 8.5 % (3-14); Neutrophils Absolute Auto 3800 /uL (1500-7000); Neutrophils Percent Auto 63.1 % (50-75); Platelet Count 245 X10^3/uL (150-400); Red Cell Distribution Width 13.7 % (11.6-14.8)
[2022-08-20 15:16] LABS: Urine N gonorrhoeae NOT DETECTED
[2022-08-20] MEDS: diazePAM 5 MG TABLET PO (15:21)
[2022-08-20 15:22] LABS: Urine Chlamydia NOT DETECTED
[2022-08-20] MEDS: predniSONE 20 MG TABLET PO (15:22)
[2022-08-20] MEDS: LIDOCAINE PATCH 1 EACH ADH..PATCH TOP (15:22)
[2022-08-20] MEDS: PHENAZOPYRIDINE 100 MG TABLET PO (15:22)
[2022-08-20] MEDS: NITROFURANTOIN ER 100 MG CAPSULE PO (15:22)
[2022-08-20 16:18] VITALS: BP 134/86; PULSE 80; RESP 16; O2SAT 98
[2022-08-20 16:21] LABS: Alanine Aminotransferase 41 IU/L (<35); Albumin 4.2 g/dL (3.5-5.0); Albumin Globulin Ratio 1.4 (1.0-2.8); Alkaline Phosphatase 87 U/L (38-126); Aspartate Aminotransferase 24 IU/L (14-36); BUN Creatinine Ratio 23.3 (6-22); Blood Urea Nitrogen 14 mg/dL (7-17); C-Reactive Protein Quant 0.7 mg/dL (<1.0); Calcium 9.2 mg/dL (8.4-10.2); Carbon Dioxide 28 mmol/L (22-32); Chloride 101 mmol/L (98-107); Estimated Glomerular Filt Rate > 60 mL/min (>60); Globulin 3.1 g/dL (1.7-4.1); Glucose 92 mg/dL (70-100); HEMOLYSIS < 15 (0-50); Potassium 4.3 mmol/L (3.4-5.1); Sodium 136 mmol/L (137-145); Total Protein 7.3 g/dL (6.3-8.2)
== END 2022-08-20 16:19 | disposition home or self-care (01) ==
PROVIDERS: Emergency Medicine; Emergency Provider Nurse Practitioner Critical Care Medicine; Family Provider Family Medicine; PCP Family Medicine
DX: M54.16 Radiculopathy, lumbar region (principal); R31.9 Hematuria, unspecified; M25.552 Pain in left hip; R19.7 Diarrhea, unspecified
CPT/HCPCS: 36415; 74177; 80053; 81003; 81015; 85025; 86140; 87210; 87491; 87591; 96374; 99284; 99285; J1885; Q9967

== ENCOUNTER → 2023-07-19 12:10 | Outpatient (CLI) | payer OTHER, SELFPAY ==
[2022-10-05 10:46] VITALS: BMI 28.5
[2023-07-19 13:59] LABS: Add Manual Diff / Slide Review NO; Basophils Absolute Auto 0 /uL (0-100); Basophils Percent Auto 0.7 % (0-2); Eosinophils Absolute Auto 100 /uL (0-450); Eosinophils Percent Auto 1.8 % (2-4); Hematocrit 42.6 % (36-46); Hemoglobin 14.6 g/dL (12.0-16.0); Lymphocytes Absolute Auto 1700 /uL (1100-4500); Lymphocytes Percent Auto 32.5 % (25-40); Mean Corpuscular HGB Conc 34.3 % (30-36); Mean Corpuscular Hemoglobin 32.8 PG (26-34); Mean Corpuscular Volume 95.6 fL (80-100); Monocytes Absolute Auto 400 /uL (0-900); Neutrophils Absolute Auto 2900 /uL (1500-7000); Platelet Count 240 X10^3/uL (150-400); Red Blood Cell Count 4.46 X10^6/uL (4.0-5.2); Red Cell Distribution Width 13.7 % (11.6-14.8); White Blood Cell Count 5.2 X10^3/uL (4.5-11.0)
[2023-07-19 14:45] LABS: Erythrocyte Sedimentation Rate 4 MM/HR (0-20)
[2023-07-19 14:57] LABS: Alanine Aminotransferase 48 IU/L (<35); Albumin 4.4 g/dL (3.5-5.0); Albumin Globulin Ratio 1.4 (1.0-2.8); Alkaline Phosphatase 74 U/L (38-126); Aspartate Aminotransferase 30 IU/L (14-36); BUN Creatinine Ratio 27.3 (6-22); Bilirubin Total 0.6 mg/dL (0.2-1.3); Blood Urea Nitrogen 18 mg/dL (7-17); Calcium 9.3 mg/dL (8.4-10.2); Carbon Dioxide 23 mmol/L (22-32); Chloride 108 mmol/L (98-107); Estimated Glomerular Filt Rate > 60 mL/min (>60); Globulin 3.1 g/dL (1.7-4.1); Glucose 94 mg/dL (70-100); HEMOLYSIS < 15 (0-50); Potassium 4.1 mmol/L (3.4-5.1); Sodium 138 mmol/L (137-145); Total Protein 7.5 g/dL (6.3-8.2)
[2023-07-19 23:05] LABS: C-Reactive Protein Quant < 0.5 mg/dL (<1.0)
== END ==
LOC: LAB 12:12
PROVIDERS: Family Provider Family Medicine; PCP Family Medicine; Referring Provider Registered Nurse; Visit Provider Registered Nurse
DX: M54.50 Low back pain, unspecified (principal); G89.29 Other chronic pain; M25.50 Pain in unspecified joint
CPT/HCPCS: 36415; 80053; 85025; 85651; 86140

== ENCOUNTER → 2023-07-20 10:54 | Outpatient (CLI) | payer OTHER, SELFPAY ==
[2022-10-05 10:46] VITALS: BMI 28.5
--- NOTE | 2023-07-20 10:55 | DI.CT.S_ITS ---
PROCEDURE: CT ABDOMEN PELVIS W CON INDICATIONS: Left lower quadrant pain TECHNIQUE: After the administration of intravenous contrast, axial sections acquired from the lung bases to the pubic symphysis. Coronal and sagittal reformats were performed. For radiation dose reduction, the following was used: automated exposure control, adjustment of mA and/or kV according to patient size. COMPARISON: [facility], CT, CT ANGIO ABDOMEN PELVIS, 02/28/2022, 8:58. [facility], CT, CT KIDNEY URETER BLADDER (KUB), 02/26/2022, 13:08. [facility], CT, CT ABDOMEN PELVIS W CON, 08/20/2022, 14:22. FINDINGS: Image quality: Diagnostic. Lower Chest: No significant findings. ABDOMEN: Liver: No solid mass. Normal size. Moderate hepatic steatosis. Gallbladder: No radiopaque gallstones or wall thickening. Biliary ducts: No biliary dilation. Pancreas: No ductal dilation. Spleen: Size is within normal limits. Adrenal Glands: No adrenal nodules. Kidneys and Ureters: No hydronephrosis. No solid mass. No complex renal cystic lesion which requires follow up. Stomach and Bowel: Normal bowel caliber. There is small bowel wall thickening involving distal duodenum, proximal jejunum (series 2, image 40), and terminal ileum. There is also mild colonic wall thickening involving the cecum (series 2 image 55) and sigmoid colon (series 2, image 68). No findings to suggest bowel obstruction. Peritoneum: No abnormal intraperitoneal fluid. No free air. Ventral Wall: No significant ventral hernia. Abdominal Nodes: No retroperitoneal or mesenteric adenopathy by size criteria. Vessels: Aorta and inferior vena cava are normal in size. Mild atherosclerotic calcifications. PELVIS: Pelvic Organs: Hysterectomy. Ovaries are unremarkable. Bladder: No bladder wall thickening, accounting for underdistention. Pelvic Nodes: No enlarged lymph nodes. Miscellaneous: No inguinal hernias are seen. Bones: No aggressive osseous abnormality. Moderate spondylitic changes in L5-S1. IMPRESSION: 1. Bowel wall thickening involving duodenum, jejunum and terminal ileum, cecum and sigmoid colon. Differential diagnoses are inflammatory bowel disease versus infectious enterocolitis. 2. Hepatic steatosis. Dictated by: Lupillo Taylor M.D. on 07/21/2023 at 7:14 Approved by: Lupillo Taylor M.D. on 07/21/2023 at 9:45
== END ==
PROVIDERS: Family Provider Family Medicine; PCP Family Medicine; Referring Provider Registered Nurse; Visit Provider Registered Nurse
DX: K76.0 Fatty (change of) liver, not elsewhere classified (principal); I70.0 Atherosclerosis of aorta; R10.32 Left lower quadrant pain; R31.9 Hematuria, unspecified
CPT/HCPCS: 74177; Q9967

== ENCOUNTER → 2023-10-01 09:24 | Outpatient (CLI) | payer OTHER, SELFPAY ==
[2022-10-05 10:46] VITALS: BMI 28.5
[2023-10-01 10:33] LABS: Hematocrit 39.9 % (36-46); Hemoglobin 13.7 g/dL (12.0-16.0)
[2023-10-01 10:46] LABS: BUN Creatinine Ratio 21.1 (6-22); Blood Urea Nitrogen 15 mg/dL (7-17); Carbon Dioxide 29 mmol/L (22-32); Chloride 107 mmol/L (98-107); Estimated Glomerular Filt Rate > 60 mL/min (>60); Glucose 98 mg/dL (70-100); HEMOLYSIS < 15 (0-50); Potassium 4.5 mmol/L (3.4-5.1); Sodium 140 mmol/L (137-145)
[2023-10-01 11:05] LABS: Creatinine Urine Random 186.76 mg/dL; Protein (Total) Urine Random 13 mg/dL (0-12); Protein Creatinine Ratio Urine 0.06 GRAM/24H
== END ==
PROVIDERS: Family Provider Family Medicine; PCP Family Medicine; Referring Provider Student in an Organized Health Care Education/Training Program; Visit Provider Student in an Organized Health Care Education/Training Program
DX: N05.9 Unspecified nephritic syndrome with unspecified morphologic changes (principal); D64.9 Anemia, unspecified; R80.9 Proteinuria, unspecified
CPT/HCPCS: 36415; 80048; 82570; 84156; 85014; 85018

== ENCOUNTER → 2023-10-08 10:39 | Outpatient (CLI) | payer OTHER, SELFPAY ==
[2022-10-05 10:46] VITALS: BMI 28.5
[2023-10-08 17:24] LABS: Hepatitis B Surface Antigen NEGATIVE s/c (NEGATIVE)
[2023-10-08 17:44] LABS: Hep C Virus Ab w/Reflex Quant NEGATIVE s/c (NEGATIVE)
[2023-10-09 03:38] LABS: Hepatitis B Core Antibody Negative (Negative)
[2023-10-09 04:10] LABS: Complement C3 137 mg/dL (82-167)
[2023-10-09 06:14] LABS: Hepatitis B Surf Ab Qualitativ Non Reactive (.)
[2023-10-09 18:38] LABS: DNA (DS) Antibody <1 IU/mL (0-9)
[2023-10-10 14:40] LABS: ANA Screen, IFA Negative (.)
[2023-10-10 17:36] LABS: Antimyeloperoxidase Antibodies <0.2 units (0.0-0.9); Antiproteinase 3 Antibodies 0.2 units (0.0-0.9); Cytoplasmic C-ANCA <1:20 titer (Neg:<1:20); Perinuclear P-ANCA <1:20 titer (Neg:<1:20)
== END ==
PROVIDERS: Family Provider Family Medicine; PCP Family Medicine; Referring Provider Student in an Organized Health Care Education/Training Program; Visit Provider Student in an Organized Health Care Education/Training Program
DX: M31.30 Wegener's granulomatosis without renal involvement (principal); M32.10 Systemic lupus erythematosus, organ or system involvement unspecified; N00.9 Acute nephritic syndrome with unspecified morphologic changes; D89.89 Other specified disorders involving the immune mechanism, not elsewhere classified; B19.10 Unspecified viral hepatitis B without hepatic coma
CPT/HCPCS: 86038; 86160; 86225; 86256; 86704; 86706; 86803; 87340

== ENCOUNTER → 2023-11-20 14:41 | Outpatient (CLI) | payer OTHER, SELFPAY ==
[2022-10-05 10:46] VITALS: BMI 28.5
[2023-11-20 16:24] LABS: Appearance Urine UA CLEAR; Bilirubin Urine UA NEGATIVE (NEGATIVE); Color Urine UA YELLOW; Glucose Urine UA NEGATIVE (Negative); Ketones Urine UA NEGATIVE (NEGATIVE); Leukocyte Esterase Urine UA NEGATIVE (NEGATIVE); Nitrite Urine UA NEGATIVE (Negative); Occult Blood Urine UA 2+ (Negative); Protein Urine UA NEGATIVE (Negative); Specific Gravity Urine UA 1.025 (1.000-1.035)
[2023-11-20 16:32] LABS: Bacteria Urine Many (>30); Culture Indicated Urine Cult Not Indicated; RBC Urine 1-5/HPF (0-5/HPF); Squamous Epithelial Cell Urine 10-30 /HPF (0-5/HPF); Urine Volume 10mL (spun); WBC Urine 1-5/HPF (0-5/HPF)
[2023-11-20 16:49] LABS: Creatinine Urine Random 123.17 mg/dL; Protein (Total) Urine Random 8 mg/dL (0-12); Protein Creatinine Ratio Urine 0.06 GRAM/24H
[2023-11-20 17:20] LABS: Hematocrit 41.6 % (36-46); Hemoglobin 14.2 g/dL (12.0-16.0); Mean Corpuscular HGB Conc 34.3 % (30-36); Mean Corpuscular Hemoglobin 33.4 PG (26-34); Mean Corpuscular Volume 97.5 fL (80-100); Platelet Count 239 X10^3/uL (150-400); Red Blood Cell Count 4.26 X10^6/uL (4.0-5.2); Red Cell Distribution Width 14.1 % (11.6-14.8); White Blood Cell Count 5.3 X10^3/uL (4.5-11.0)
[2023-11-20 17:50] LABS: BUN Creatinine Ratio 23.4 (6-22); Blood Urea Nitrogen 18 mg/dL (7-17); Calcium 9.3 mg/dL (8.4-10.2); Carbon Dioxide 28 mmol/L (22-32); Chloride 107 mmol/L (98-107); Estimated Glomerular Filt Rate > 60 mL/min (>60); Glucose 74 mg/dL (70-100); HEMOLYSIS < 15 (0-50); Potassium 4.9 mmol/L (3.4-5.1); Sodium 140 mmol/L (137-145)
== END ==
PROVIDERS: Family Provider Family Medicine; PCP Family Medicine; Referring Provider Student in an Organized Health Care Education/Training Program; Visit Provider Student in an Organized Health Care Education/Training Program
DX: N05.9 Unspecified nephritic syndrome with unspecified morphologic changes (principal); D70.9 Neutropenia, unspecified; D63.1 Anemia in chronic kidney disease; N30.00 Acute cystitis without hematuria; R80.9 Proteinuria, unspecified
CPT/HCPCS: 36415; 80048; 81001; 82570; 84156; 85027

== ENCOUNTER 2024-06-18 23:06 | Emergency (ER) | payer OTHER, SELFPAY ==
[2022-10-05 10:46] VITALS: BMI 28.5
[2024-06-18 23:48] VITALS: BP 167/95; PULSE 92; RESP 16; TEMP 36.6; O2SAT 97; BMI 31.1
[2024-06-19] VITALS (7 sets, daily range): BP systolic 168–181; BP diastolic 83–85; PULSE 69–93; RESP 17–18; TEMP 36.3; O2SAT 96–99
--- NOTE | 2024-06-19 00:10 | DI.RAD.S_ITS ---
PROCEDURE: XR CHEST 1V INDICATIONS: chest pain TECHNIQUE: One view of the chest was acquired. COMPARISON: None. FINDINGS: Surgical changes and devices: None. Lungs and pleura: Lungs are clear. No pleural effusions or pneumothorax. Mediastinum: Mediastinal contours appear normal. Heart size is normal. Bones and chest wall: No suspicious bony lesions. Overlying soft tissues appear unremarkable. IMPRESSION: No acute cardiopulmonary abnormality is seen. Dictated by: Darrell Fritz M.D. on 06/19/2024 at 0:45 Approved by: Darrell Fritz M.D. on 06/19/2024 at 0:45
--- NOTE | 2024-06-19 00:14 | EKG_ITS ---
[address] [address] Test Date: 2024-06-19 Pat Name: Kinjal Slater Department: [facility] Room: Gender: Female [employer] Installation Technician: merissa : 1975 Requested By: Order Number: [id number] Reading MD: Torito Guzman Measurements Intervals [place] Rate: 88 P: 58 WA: 164 QRS: 30 QRSD: 86 T: 47 QT: 378 QTc: 457 Interpretive Statements Normal sinus rhythm Septal infarct , age undetermined Electronically Signed On 06-22-2024 18:54:57 PST by Torito Guzman
--- NOTE | 2024-06-19 00:30 | ED.CHESTPAIN ---
HPI - Chest Pain General Chief Complaint: Chest Pain Stated Complaint: bph, burning in chest Time Seen by Provider: 06/19/24 00:17 Source: patient Mode of arrival: Ambulatory Limitations: no limitations History of Present Illness HPI narrative: 49-year-old woman who had slight heart palpitation and felt that her heart rate was higher than usual. In October of 2023 she was prescribed blood pressure medications with a diagnosis of hypertension but chose not to take them. She has been having sweating issues over the last week. Blood pressure is 167/95 heart rate is 92 Related Data Previous Rx's Medication Instructions Recorded metoprolol tartrate 25 mg tablet 25 mg PO BID PRN palpitations #20 06/19/24 tabs Allergies Allergy/AdvReac Type Severity Reaction Status Date / Time levofloxacin [LEVOFLOXACIN] Allergy Intermediate numbness Verified 10/19/22 09:47 gabapentin [GABAPENTIN] Allergy Unknown NAUSEA, Verified 10/19/22 09:47 SWEATS, WEAKNESS Review of Systems Review of Systems Narrative: Pertinent positive and negative findings as per HPI Patient History Medical History Left flank pain Hematuria History of nephrolithiasis H/O nephrolithotomy with removal of calculi Anemia Recurrent and persistent hematuria Rectocele Surgical History History of bladder suspension procedure History of placement of ear tubes History of arthroscopic knee surgery S/P epidural steroid injection History of ear surgery History of microdiscectomy History of bilateral tubal ligation History of cystoscopy Family History Son Acute colitis Social History marital status: household members: spouse Smoking Status: Current every day smoker alcohol intake: current Type(s) of exercise: walking frequency: 3-4 times per week Smoking Status: Current every day smoker tobacco type: vaping alcohol intake frequency: 0-2 drinks per day Alcohol type: hard liquor Exam Initial Vital Signs Initial Vital Signs: Vital Signs Temperature 98 F 06/18/24 23:48 Pulse Rate 92 H 06/18/24 23:48 Respiratory Rate 16 06/18/24 23:48 Blood Pressure 167/95 H 06/18/24 23:48 Pulse Oximetry 97 06/18/24 23:48 Oxygen Delivery Method Room Air 06/18/24 23:48 General: Healthy appearing, in no acute distress. Able to give a complete and coherent history. Well-nourished well-developed HEENT: Moist mucous membranes, normal sclera with reactive pupils,Face is slightly flushed Respiratory: Lungs are clear to auscultation, no wheezing no rales no rhonchi. Full and symmetrical air movement Cardiac: Regular rate and rhythm no murmurs no bruits Abdomen: Soft, nontender, good bowel tones, no flank pain Skin: Warm and dry, no rashes Neurologic: Grossly neurologically intact with no obvious asymmetries or abnormalities Extremities: No trauma, well perfused Psych: Cooperative, appropriate insight and affect Course Orders Ordered: ED Orders 06/19/24 00:10 XR chest 1V Stat EKG-12 Lead Stat 06/19/24 00:27 FSH [Follicle Stimulating Hormone] Stat 06/19/24 00:29 Complete Blood Count AUTO DIFF Stat Comprehensive Metabolic Panel Stat Lipase Stat Magnesium Stat PTT Partial Thromboplastin Gianni Stat Prothrombin Time INR Stat Troponin & CK Cardiac Panel Stat 06/19/24 01:14 Covid-19 + FLU A/B + RSV - PCR Stat Discontinued Medications Aspirin (Aspirin 81 Mg Chew Tab) 324 mg PO NOW ONE Stop: 06/19/24 00:11 Last Admin: 06/19/24 01:19 Dose: 324 mg Documented By: Metoprolol Tartrate (Metoprolol Ir 25 Mg Tablet) 25 mg PO NOW ONE Stop: 06/19/24 01:11 Last Admin: 06/19/24 01:19 Dose: 25 mg Documented By: MR Vital Signs Vital signs: Vital Signs - 8 hr 06/18/24 23:48 06/19/24 00:22 06/19/24 00:22 Temperature 98 F Pulse Rate 92 H 91 H Respiratory Rate 16 Blood Pressure 167/95 H 168/85 H Pulse Oximetry 97 96 Oxygen Delivery Method Room Air 06/19/24 00:30 06/19/24 01:00 Temperature Pulse Rate 85 93 H Respiratory Rate 17 Blood Pressure Pulse Oximetry 97 96 Oxygen Delivery Method MDM - Chest Pain Lab Data 06/19/24 00:29 06/19/24 00:29 Labs: Lab Results 06/19/24 06/19/24 06/19/24 Range/Units 00:27 00:29 01:14 WBC 6.5 (4.5-11.0) X10^3/uL RBC 4.41 (4.0-5.2) X10^6/uL Hgb 14.6 (12.0-16.0) g/dL Hct 42.1 (36-46) % MCV 95.4 (80-100) fL MCH 33.0 (26-34) PG MCHC 34.6 (30-36) % RDW 14.1 (11.6-14.8) % Plt Count 296 (150-400) X10^3/uL Neut % (Auto) 52.3 (50-75) % Lymph % (Auto) 34.8 (25-40) % Hitchcock % (Auto) 10.2 (3-14) % Eos % (Auto) 2.3 (2-4) % Baso % (Auto) 0.4 (0-2) % Neut # (Auto) 3400 (7394-3497) /uL Lymph # (Auto) 2300 (5875-3260) /uL Hitchcock # (Auto) 700 (0-900) /uL Eos # (Auto) 200 (0-450) /uL Baso # (Auto) 0 (0-100) /uL PT 10.5 (9.4-12.5) SECONDS INR 0.9 (0.9-1.3) APTT 35 (25.1-36.5) SECONDS Sodium 140 (137-145) mmol/L Potassium 3.9 (3.4-5.1) mmol/L Chloride 104 (98-107) mmol/L Carbon Dioxide 25 (22-32) mmol/L BUN 17 (7-17) mg/dL Creatinine 0.72 (0.52-1.04) mg/dL Estimated GFR > 60 (>60) mL/min BUN/Creatinine Ratio 23.6 H (6-22) Glucose 82 (70-100) mg/dL Calcium 9.6 (8.4-10.2) mg/dL Magnesium 2.2 (1.6-2.3) mg/dL Total Bilirubin 0.4 (0.2-1.3) mg/dL AST 41 H (14-36) IU/L ALT 78 H (<35) IU/L Alkaline Phosphatase 67 (38-126) U/L Total Creatine Kinase 78 (30-135) U/L Troponin I < 0.012 (0.01-0.034) ng/mL Total Protein 8.0 (6.3-8.2) g/dL Albumin 4.9 (3.5-5.0) g/dL Globulin 3.1 (1.7-4.1) g/dL Albumin/Globulin Ratio 1.6 (1.0-2.8) Lipase 214 (23-300) U/L FSH 50.9 mIU/mL SARS-CoV-2 (PCR) Negative (Negative) Influenza A (RT-PCR) Flu a negative (NEGATIVE) Influenza B (RT-PCR) Flu b negative (NEGATIVE) RSV (PCR) Negative (Negative) MDM Narrative Medical decision making narrative: CC:Concern for palpitations, hot flashes and generally feeling unwell Complicating co-morbidities: upper respiratory infection lasting approximately 3 weeks seeming to resolved over the last couple of days Data collected from: patient Differential considered: postviral cardiomyopathy, sequential viral infection, menopausal palpitations with hot flashes, malignant hypertension Exam documented above, pertinent findings include: patient is somewhat flushed, complaining of palpitations with a heart rate in the 90 range, exam is benign Lab Test results independently reviewed as above. Pertinent findings: CBC is unremarkable, no anemia metabolic panel is reassuring. ALT and AST your minimally elevated troponin is undetectable FSH is elevated at 50.1 no influenza, COVID or RSV Independently reviewed EKG: Imaging studies independently reviewed: chest x-ray is unremarkable sinus rhythm at a rate of 88. No acute ischemic changes Treatments: 25 mg of metoprolol tartrate Discussion: 49-year-old woman recently had 3 weeks of upper respiratory type symptoms. Presents today with concerns for palpitation, increased heart rate and elevated blood pressure. She has been checking blood pressures at home and prior to this recent viral syndrome they have been in the 120/70 range. Over the last week or so they have been somewhat higer. there was no evidence of acute coronary syndrome, hyperthyroidism or postviral cardiomyopathy. No evidence of congestive heart failure bacterial pneumonia. Her FSH is elevated and we had a nice discussion regarding menopause and how this might be contributing to the palpitations as well as the hot flashes. She was given an oral dose of metoprolol which helps significantly with the palpitation sensation in the overall sense of well-being. She will be given a prescription for this to use as needed and I asked her to document regular blood pressures and schedule follow up appointment with her primary care physician to discuss blood pressure as well as menopause treatment. Questions are answered and she is safe for discharge Discharge Plan Departure Patient Disposition: Home Clinical Impression: Heart palpitations, Hot flash, menopausal, Elevated blood pressure reading Instructions: DI for Palpitations Activity Restrictions/Additional Instructions: thank you for coming in today with palpitations, the flushing and the increased blood pressure possibility of heart attack, blood pressure crisis, heart complication after recent virus were all entertained. Fortunately your blood work, EKG and chest x-ray are all reassuringly normal I did check your FSH, this is hormone that will increase after menopause. You are numbers are in the menopausal range. I suspect that the your current symptoms are combination of continuing to heal after recent viral infection and palpitations with hot flashes related to menopause. I have given you a prescription for metoprolol 25 mg. You can use 1 of these up to twice a day to help with symptomatic heart palpitations. I would suggest that you keep track of daily blood pressures and schedule an appointment with your primary care physician to discuss your blood pressure. With that appointment I would also suggest discussion regarding menopause and treatment of vasomotor symptoms overall. If you find that you are getting worse or develop any new symptoms, please feel free to return to the emergency department for further evaluation. Prescriptions: New metoprolol tartrate 25 mg tablet 25 mg PO BID PRN (Reason: palpitations) Qty: 20 0RF Referrals: Rick Álvarez MD [Primary Care Provider] - Stand Alone Forms: Patient Portal/API/Survey
[2024-06-19 00:37] LABS: Add Manual Diff / Slide Review NO; Basophils Absolute Auto 0 /uL (0-100); Basophils Percent Auto 0.4 % (0-2); Eosinophils Absolute Auto 200 /uL (0-450); Eosinophils Percent Auto 2.3 % (2-4); Hematocrit 42.1 % (36-46); Hemoglobin 14.6 g/dL (12.0-16.0); Lymphocytes Absolute Auto 2300 /uL (1100-4500); Lymphocytes Percent Auto 34.8 % (25-40); Mean Corpuscular HGB Conc 34.6 % (30-36); Mean Corpuscular Volume 95.4 fL (80-100); Monocytes Absolute Auto 700 /uL (0-900); Monocytes Percent Auto 10.2 % (3-14); Neutrophils Absolute Auto 3400 /uL (1500-7000); Neutrophils Percent Auto 52.3 % (50-75); Platelet Count 296 X10^3/uL (150-400); Red Blood Cell Count 4.41 X10^6/uL (4.0-5.2); Red Cell Distribution Width 14.1 % (11.6-14.8); White Blood Cell Count 6.5 X10^3/uL (4.5-11.0)
[2024-06-19 00:44] LABS: INR 0.9 (0.9-1.3); Prothrombin Time 10.5 SECONDS (9.4-12.5)
[2024-06-19 00:47] LABS: PTT Partial Thromboplastin Tim 35 SECONDS (25.1-36.5)
[2024-06-19 00:49] LABS: Alanine Aminotransferase 78 IU/L (<35); Albumin 4.9 g/dL (3.5-5.0); Albumin Globulin Ratio 1.6 (1.0-2.8); Alkaline Phosphatase 67 U/L (38-126); Aspartate Aminotransferase 41 IU/L (14-36); BUN Creatinine Ratio 23.6 (6-22); Bilirubin Total 0.4 mg/dL (0.2-1.3); Blood Urea Nitrogen 17 mg/dL (7-17); Calcium 9.6 mg/dL (8.4-10.2); Carbon Dioxide 25 mmol/L (22-32); Chloride 104 mmol/L (98-107); Creatine Kinase 78 U/L (30-135); Estimated Glomerular Filt Rate > 60 mL/min (>60); Globulin 3.1 g/dL (1.7-4.1); Glucose 82 mg/dL (70-100); HEMOLYSIS < 15 (0-50); Lipase 214 U/L (23-300); Magnesium 2.2 mg/dL (1.6-2.3); Potassium 3.9 mmol/L (3.4-5.1); Sodium 140 mmol/L (137-145)
[2024-06-19 01:00] LABS: Troponin I < 0.012 ng/mL (0.01-0.034)
[2024-06-19] MEDS: ASPIRIN 81 MG CHEW TAB 324 MG PO (01:19)
[2024-06-19] MEDS: METOPROLOL IR 25 MG TABLET PO (01:19)
[2024-06-19 01:46] LABS: Follicle Stimulating Hormone 50.9 mIU/mL
[2024-06-19 01:57] LABS: COVID-19 CEPHEID 4-PLEX PCR Negative (Negative); Influenza A - CEPHEID Flu A NEGATIVE (NEGATIVE); Influenza B - CEPHEID Flu B NEGATIVE (NEGATIVE); Respiratory Syncytial Virus Negative (Negative)
== END 2024-06-19 02:33 | disposition home or self-care (01) ==
PROVIDERS: Emergency Provider Emergency Medicine; Family Provider Family Medicine; PCP Family Medicine
DX: R00.2 Palpitations (principal); N95.1 Menopausal and female climacteric states; R23.2 Flushing; I10 Essential (primary) hypertension; F17.200 Nicotine dependence, unspecified, uncomplicated; Z91.148 Patient's other noncompliance with medication regimen for other reason
CPT/HCPCS: 0241U; 36415; 71045; 80053; 82550; 83001; 83690; 83735; 84484; 85025; 85610; 85730; 93005; 99284